=== PATIENT | female | born 1960 | race Hispanic/Latino ===

== ENCOUNTER 2018-05-14 12:51 | Emergency (ER) | payer OTHER ==
--- OUTSIDE RECORDS SUMMARY | 2018-05-14 12:59 | XMS REPORT ---
:1960 [facility] [address] [place] [address] Care Team Providers Name Role Phone DR ANITA GALVEZ Unavailable Unavailable Problems This patient has no known problems. Allergies, Adverse Reactions, Alerts This patient has no known allergies or adverse reactions. Medications This patient has no known medications. Encounters Start End Encounter Admission Attending Care Care Encounter Date/Time Date/Time Type Type Clinicians Facility Department ID 2017-07-13 2017-07-13 Outpatient C ASHKAN GALVEZ [facility] [id number] 07:21:00 11:35:00 ANITA Results Test Description Test Time Test Comments Text Results Atomic Results Result Comments GLUCOMETER GLUCOSE- LAB USE ONLY 2017-07-14 06:47:00 Test Item Value Reference Range Comments GLUCOMETER (test code=GMG) 119 mg/dL 70-100
--- OUTSIDE RECORDS SUMMARY | 2018-05-14 12:59 | XMS REPORT | Clinical Summary ---
:1960 Author Organization [facility] [employer] Address [address] [place] [address] Care Team Providers Name Role Phone Asked, No Pcp Primary Care Provider Unavailable Allergies Active Allergy Reactions Severity Noted Date Comments Codeine 11/02/2017 Current Medications Prescription Sig. Disp. Refills Start Date End Date Status metoprolol tartrate Take 25 mg by Active (LOPRESSOR) 25 mg mouth 2 (two) tablet times a day. lisinopril Take 5 mg by Active (PRINIVIL,ZESTRIL) 5 mouth daily. mg tablet linezolid (ZYVOX) 600 Take 1 tablet 20 tablet 0 11/06/2017 11/16/2017 mg tablet (600 mg total) by mouth 2 (two) times a day for 10 days. Active Problems Problem Noted Date Cellulitis and abscess of right leg 11/02/2017 Encounters Date Type Specialty Care Team Description 11/21/2017 Office Visit General Surgery Oprodrick, Surgery follow-up Braulio Rendon MD (Primary Dx) 11/03/2017 Anesthesia Event General Surgery Aditi Chavez MD 11/03/2017 Procedure Pass General Surgery 11/03/2017 Surgery General Surgery Lyndsey, Incision and Braulio Rendon MD Drainage of Right Thigh Abscess 11/02/2017 - Hospital Encounter General Internal Hoover, Cellulitis and 11/07/2017 Shyam Paez MD abscess of right Saad Barbosa MD leg (Primary Dx) after 05/13/2017 Social History Tobacco Use Types Packs/Day Years Used Date Never Smoker Smokeless Tobacco: Never Used Alcohol Use Drinks/Week oz/Week Comments No Sex Assigned at Date Recorded Not on file Last Filed Vital Signs Vital Sign Reading Time Taken Blood Pressure 137/89 11/21/2017 12:50 PM CDT Pulse 69 11/21/2017 12:50 PM CDT Temperature 36.5 C (97.7 F) 11/07/2017 9:01 AM CDT Respiratory Rate 16 11/07/2017 9:01 AM CDT Oxygen Saturation 94% 11/07/2017 11:34 AM CDT Inhaled Oxygen Concentration - - Weight 81.6 kg (180 lb) 11/21/2017 12:50 PM CDT Height 154.9 cm (5' 1") 11/21/2017 12:50 PM CDT Body Mass Index 34.01 11/21/2017 12:50 PM CDT Plan of Treatment Health Maintenance Due Date Last Done Comments CERVICAL CANCER SCREENING 1983 BREAST CANCER SCREENING 2012 COLON CANCER SCREENING 2012 SHINGRIX VACCINE (#1) 2012 INFLUENZA VACCINE 02/28/2018 Procedures Procedure Name Priority Date/Time Associated Comments Diagnosis ZZESTIMATED GFR Routine 11/07/2017 5:45 Results for this AM CDT procedure are in the results section. COMPREHENSIVE Routine 11/07/2017 5:45 Results for this METABOLIC PANEL AM CDT procedure are in the results section. CBC WITH PLATELET AND Routine 11/07/2017 5:45 Results for this DIFFERENTIAL AM CDT procedure are in the results section. POC GLUCOSE Routine 11/06/2017 11:04 Results for this AM CDT procedure are in the results section. POC GLUCOSE Routine 11/06/2017 8:16 Results for this AM CDT procedure are in the results section. VANCOMYCIN LEVEL, Timed 11/06/2017 5:30 Results for this TROUGH AM CDT procedure are in the results section. ZZESTIMATED GFR Routine 11/06/2017 5:30 Results for this AM CDT procedure are in the results section. MAGNESIUM LEVEL Routine 11/06/2017 5:30 Results for this AM CDT procedure are in the results section. COMPREHENSIVE Routine 11/06/2017 5:30 Results for this METABOLIC PANEL AM CDT procedure are in the results section. HC COMPLETE BLD COUNT Routine 11/06/2017 5:30 Results for this W/AUTO DIFF AM CDT procedure are in the results section. POC GLUCOSE Routine 11/05/2017 9:11 Results for this PM CDT procedure are in the results section. POC GLUCOSE Routine 11/05/2017 5:37 Results for this PM CDT procedure are in the results section. POC GLUCOSE Routine 11/05/2017 11:12 Results for this AM CDT procedure are in the results section. POC GLUCOSE Routine 11/05/2017 7:39 Results for this AM CDT procedure are in the results section. ZZESTIMATED GFR Routine 11/05/2017 5:00 Results for this AM CDT procedure are in the results section. BASIC METABOLIC PANEL Routine 11/05/2017 5:00 Results for this AM CDT procedure are in the results section. HC COMPLETE BLD COUNT Routine 11/05/2017 5:00 Results for this W/AUTO DIFF AM CDT procedure are in the results section. POC GLUCOSE Routine 11/04/2017 3:55 Results for this PM CDT procedure are in the results section. POC GLUCOSE Routine 11/04/2017 11:42 Results for this AM CDT procedure are in the results section. ZZESTIMATED GFR Routine 11/04/2017 7:00 Results for this AM CDT procedure are in the results section. BASIC METABOLIC PANEL Routine 11/04/2017 7:00 Results for this AM CDT procedure are in the results section. MANUAL DIFFERENTIAL Routine 11/04/2017 5:45 Results for this AM CDT procedure are in the results section. VANCOMYCIN LEVEL, Routine 11/04/2017 5:45 Results for this TROUGH AM CDT procedure are in the results section. CBC WITH PLATELET AND Routine 11/04/2017 5:45 Results for this DIFFERENTIAL AM CDT procedure are in the results section. POC GLUCOSE Routine 11/03/2017 4:39 Results for this PM CDT procedure are in the results section. POC GLUCOSE Routine 11/03/2017 3:52 Results for this PM CDT procedure are in the results section. GRAM STAIN Timed 11/03/2017 3:15 Results for this PM CDT procedure are in the results section. AEROBIC CULTURE Timed 11/03/2017 3:15 Results for this PM CDT procedure are in the results section. ANAEROBIC CULTURE Timed 11/03/2017 3:15 Results for this PM CDT procedure are in the results section. MT AN ELECTIVE Routine 11/03/2017 3:04 SUPRAGLOTTIC AIRWAY PM CDT Procedure Note - Efren Waters CRNA - 11/03/2017 3:04 PM CDT Airway Date/Time: 11/03/2017 2:53 PM Performed by: EFREN WATERS Authorized by: ADITI CHAVEZ Location: OR Urgency: Elective Difficult Airway: No Anesthesiologist: ADITI CHAVEZ Resident/ARRT TECHNOLOGIST/AA: EFREN WATERS Performed by: anesthesiologist and resident/ARRT TECHNOLOGIST/AA Preoxygenated with 100% O2: Yes Mask Ventilation: Easy mask Final Airway Type: Supraglottic airway Final LMA: Classic LMA Size: 4 Number of Attempts at Approach: 1 ECG 12-LEAD STAT 11/03/2017 1:01 PM CDT POC GLUCOSE Routine 11/03/2017 11:30 AM CDT POC GLUCOSE Routine 11/03/2017 7:40 AM CDT XR ABDOMEN 1 VW PORTABLE STAT 11/03/2017 6:58 AM CDT POC GLUCOSE Routine 11/03/2017 6:21 AM CDT ZZESTIMATED GFR Routine 11/03/2017 5:00 AM CDT COMPREHENSIVE METABOLIC Routine 11/03/2017 5:00 AM CDT Results for this PANEL procedure are in the results section. HC COMPLETE BLD COUNT W/AUTO Routine 11/03/2017 5:00 AM CDT Results for this DIFF procedure are in the results section. LIPID PANEL Routine 11/03/2017 5:00 AM CDT HEMOGLOBIN A1C Routine 11/03/2017 5:00 AM CDT POC GLUCOSE Routine 11/02/2017 9:34 PM CDT LACTIC ACID LEVEL, SEPSIS - Timed 11/02/2017 9:04 PM CDT Results for this NOW AND REPEAT 2X EVERY 3 procedure are in the HOURS results section. CONSULT TO OSTOMY CARE NURSE Routine 11/02/2017 7:00 PM CDT GRAM STAIN Routine 11/02/2017 7:00 PM CDT AEROBIC CULTURE Routine 11/02/2017 7:00 PM CDT ZZESTIMATED GFR STAT 11/02/2017 5:57 PM CDT BASIC METABOLIC PANEL STAT 11/02/2017 5:57 PM CDT LACTIC ACID LEVEL, SEPSIS - Timed 11/02/2017 5:51 PM CDT Results for this NOW AND REPEAT 2X EVERY 3 procedure are in the HOURS results section. BLOOD CULTURE, AEROBIC & Routine 11/02/2017 2:42 PM CDT Results for this ANAEROBIC procedure are in the results section. PARTIAL THROMBOPLASTIN TIME STAT 11/02/2017 2:35 PM CDT Results for this (PTT) procedure are in the results section. PROTHROMBIN TIME WITH INR STAT 11/02/2017 2:35 PM CDT HC COMPLETE BLD COUNT W/AUTO STAT 11/02/2017 2:35 PM CDT Results for this DIFF procedure are in the results section. LACTIC ACID LEVEL, SEPSIS - STAT 11/02/2017 2:35 PM CDT Results for this NOW AND REPEAT 2X EVERY 3 procedure are in the HOURS results section. BLOOD CULTURE, AEROBIC & Routine 11/02/2017 2:35 PM CDT Results for this ANAEROBIC procedure are in the results section. after 05/13/2017 Results Estimated GFR (11/07/2017 5:45 AM)Only the most recent of6 resultswithin the time period is included. GFR Non Af Amer 87 mL/min/1.73 m2 [facility] DEPARTMENT OF PATHOLOGY AND GENOMIC MEDICINE GFR Af Amer >90 mL/min/1.73 m2 [facility] DEPARTMENT OF Comment: PATHOLOGY AND GENOMIC Chronic kidney disease: <60 mL/min/1.73m2 MEDICINE Kidney failure: <15 mL/min/1.73m2 The estimated GFR is calculated from the IDMS-traceable Modification of Diet in Renal Disease Equation. The accuracy of the calculation is poor when the creatinine is normal. Calculated values >90 mL/min/1.73m2 are not reported. This equation has not been validated in children (<18 years), women, the elderly (>70 years), or ethnic groups other than Caucasians and Americans. Specimen Plasma specimen Performing Organization Address City/State/Zipcode Phone Number [facility] DEPARTMENT OF PATHOLOGY [address] [place] [address] AND [employer] CBC with platelet and differential (11/07/2017 5:45 AM)Only the most recent of6 resultswithin the time period is included. WBC 8.0 4.5 - 11.0 k/uL [facility] DEPARTMENT OF PATHOLOGY AND GENOMIC MEDICINE RBC 4.93 4.20 - 5.50 m/uL [facility] DEPARTMENT OF PATHOLOGY AND GENOMIC MEDICINE HGB 14.1 12.0 - 16.0 g/dL [facility] DEPARTMENT OF PATHOLOGY AND GENOMIC MEDICINE HCT 43.1 37.0 - 47.0 % [facility] DEPARTMENT OF PATHOLOGY AND GENOMIC MEDICINE MCV 87.4 82.0 - 100.0 fL [facility] DEPARTMENT OF PATHOLOGY AND GENOMIC MEDICINE MCH 28.6 27.0 - 34.0 pg [facility] DEPARTMENT OF PATHOLOGY AND GENOMIC MEDICINE MCHC 32.7 31.0 - 37.0 g/dL [facility] DEPARTMENT OF PATHOLOGY AND GENOMIC MEDICINE RDW - SD 44.8 37.0 - 55.0 fL [facility] DEPARTMENT OF PATHOLOGY AND GENOMIC MEDICINE MPV 9.4 6.9 - 11.0 fL [facility] DEPARTMENT OF PATHOLOGY AND GENOMIC MEDICINE Platelet count 285 150 - 400 K/uL [facility] DEPARTMENT OF PATHOLOGY AND GENOMIC MEDICINE Nucleated RBC 0.00 /100 WBC [facility] DEPARTMENT OF PATHOLOGY AND GENOMIC MEDICINE Neutrophils 65.6 39.0 - 69.0 % [facility] DEPARTMENT OF PATHOLOGY AND GENOMIC MEDICINE Lymphocytes 21.3 (L) 25.0 - 45.0 % [facility] DEPARTMENT OF PATHOLOGY AND GENOMIC MEDICINE Monocytes 7.3 0.0 - 10.0 % [facility] DEPARTMENT OF PATHOLOGY AND GENOMIC MEDICINE Eosinophils 4.1 0.0 - 5.0 % [facility] DEPARTMENT OF PATHOLOGY AND GENOMIC MEDICINE Basophils 1.0 0.0 - 1.0 % [facility] DEPARTMENT OF PATHOLOGY AND GENOMIC MEDICINE Immature granulocytes 0.7 0.0 - 1.0 % [facility] DEPARTMENT OF PATHOLOGY AND GENOMIC MEDICINE Specimen Blood Performing Organization Address City/State/Zipcode Phone Number [facility] DEPARTMENT OF PATHOLOGY [address] [place] [address] AND [employer] [facility] Comprehensive metabolic panel (11/07/2017 5:45 AM)Only the most recent of3 resultswithin the time period is included. Sodium 140 135 - 148 mEq/L [facility] DEPARTMENT OF PATHOLOGY AND GENOMIC MEDICINE Potassium 4.1 3.5 - 5.0 mEq/L [facility] DEPARTMENT OF PATHOLOGY AND GENOMIC MEDICINE Chloride 100 98 - 112 mEq/L [facility] DEPARTMENT OF PATHOLOGY AND GENOMIC MEDICINE CO2 29 24 - 31 mEq/L [facility] DEPARTMENT OF PATHOLOGY AND GENOMIC MEDICINE Anion gap 11 7 - 15 mEq/L [facility] DEPARTMENT OF Comment: PATHOLOGY AND GENOMIC Starting from October , anion gap calculation MEDICINE no longer incorporates potassium. Please note the change. BUN 10 6 - 20 mg/dL [facility] DEPARTMENT OF PATHOLOGY AND GENOMIC MEDICINE Creatinine 0.7 0.5 - 0.9 mg/dL [facility] DEPARTMENT OF PATHOLOGY AND GENOMIC MEDICINE Glucose 121 (H) 65 - 99 mg/dL [facility] DEPARTMENT OF PATHOLOGY AND GENOMIC MEDICINE Calcium 9.1 8.3 - 10.2 mg/dL [facility] DEPARTMENT OF PATHOLOGY AND GENOMIC MEDICINE Protein 7.0 6.3 - 8.3 g/dL [facility] DEPARTMENT OF PATHOLOGY AND GENOMIC MEDICINE Albumin 3.7 3.5 - 5.0 g/dL [facility] DEPARTMENT OF PATHOLOGY AND GENOMIC MEDICINE A/G ratio 1.1 0.7 - 3.8 [facility] DEPARTMENT OF PATHOLOGY AND GENOMIC [facility] Alkaline phosphatase 113 (H) 35 - 104 U/L [facility] DEPARTMENT OF PATHOLOGY AND GENOMIC MEDICINE AST 38 (H) 10 - 35 U/L [facility] DEPARTMENT OF PATHOLOGY AND GENOMIC MEDICINE ALT 56 (H) 5 - 50 U/L [facility] DEPARTMENT OF PATHOLOGY AND GENOMIC MEDICINE Total bilirubin 0.3 0.2 - 1.2 mg/dL [facility] DEPARTMENT OF PATHOLOGY AND GENOMIC [facility] Specimen Plasma specimen Performing Organization Address City/[facility] Phone Number [facility] DEPARTMENT OF PATHOLOGY [address] [place] [address]. [place] [address] AND [employer] [facility] POC glucose (11/06/2017 11:04 AM)Only the most recent of14 resultswithin the time period is included. POC glucose 118 (H) 65 - 99 mg/dL [facility] DEPARTMENT OF PATHOLOGY Comment: AND GENOMIC MEDICINE RN Notified Meter ID: [id number] Senior Ui Software Engineer: ray Rivera Performing Organization Address City/[facility]/Zipcode Phone Number [facility] DEPARTMENT OF PATHOLOGY [address] [place] [address] AND [employer] [facility] Magnesium level (11/06/2017 5:30 AM) Magnesium 1.9 1.6 - 2.6 mg/dL [facility] DEPARTMENT OF PATHOLOGY AND GENOMIC MEDICINE Specimen Plasma specimen Performing Organization Address [facility] Phone Number [facility] DEPARTMENT OF PATHOLOGY [address] [place] [address] AND [facility] Vancomycin level, trough (11/06/2017 5:30 AM)Only the most recent of2 resultswithin the time period is included. Vancomycin, trough 12.4 10.0 - 20.0 ug/mL [facility] DEPARTMENT OF Comment: PATHOLOGY AND GENOMIC Therapeutic Ranges: MEDICINE Peak30.0 - 40.0 ug/mL Zthqbz21.0 - 20.0 ug/mL Specimen Blood Performing Organization Address [facility] Phone Number [facility] DEPARTMENT OF PATHOLOGY [address] [place] [address] Basic metabolic panel (11/05/2017 5:00 AM)Only the most recent of3 resultswithin the time period is included. Sodium 140 135 - 148 mEq/L [facility] DEPARTMENT OF PATHOLOGY AND GENOMIC MEDICINE Potassium 4.2 3.5 - 5.0 mEq/L [facility] DEPARTMENT OF PATHOLOGY AND GENOMIC MEDICINE Chloride 102 98 - 112 mEq/L [facility] DEPARTMENT OF PATHOLOGY AND GENOMIC MEDICINE CO2 25 24 - 31 mEq/L [facility] DEPARTMENT OF PATHOLOGY AND GENOMIC MEDICINE Anion gap 13 7 - 15 mEq/L [facility] DEPARTMENT OF Comment: PATHOLOGY AND GENOMIC Starting from October , anion gap calculation MEDICINE no longer incorporates potassium. Please note the change. BUN 8 6 - 20 mg/dL [facility] DEPARTMENT OF PATHOLOGY AND GENOMIC MEDICINE Creatinine 0.7 0.5 - 0.9 mg/dL [facility] DEPARTMENT OF PATHOLOGY AND GENOMIC MEDICINE Glucose 130 (H) 65 - 99 mg/dL [facility] DEPARTMENT OF PATHOLOGY AND GENOMIC MEDICINE Calcium 8.9 8.3 - 10.2 mg/dL [facility] DEPARTMENT OF PATHOLOGY AND GENOMIC MEDICINE Specimen Plasma specimen Performing Organization Address [facility] Phone Number [facility] DEPARTMENT OF PATHOLOGY [address] [place] [address] AND [employer] [facility] Manual differential (11/04/2017 5:45 AM) Manual differential PERFORMED [facility] DEPARTMENT OF PATHOLOGY AND GENOMIC MEDICINE Neutrophils 73.0 (H) 39.0 - 69.0 % [facility] DEPARTMENT OF PATHOLOGY AND GENOMIC MEDICINE Lymphocytes 23.0 (L) 25.0 - 45.0 % [facility] DEPARTMENT OF PATHOLOGY AND GENOMIC MEDICINE Monocytes 1.0 0.0 - 10.0 % [facility] DEPARTMENT OF PATHOLOGY AND GENOMIC MEDICINE Eosinophils 1.0 0.0 - 5.0 % [facility] DEPARTMENT OF PATHOLOGY AND GENOMIC MEDICINE Basophils 2.0 (H) 0.0 - 1.0 % [facility] DEPARTMENT OF PATHOLOGY AND GENOMIC MEDICINE Platelet slide review Kasey adequate [facility] DEPARTMENT OF PATHOLOGY AND GENOMIC MEDICINE Toxic granulation Slight [facility] DEPARTMENT OF PATHOLOGY AND GENOMIC MEDICINE Neutrophils, vacuolated Slight [facility] DEPARTMENT OF PATHOLOGY AND GENOMIC MEDICINE Giant platelets Occasional [facility] DEPARTMENT OF PATHOLOGY AND GENOMIC MEDICINE Performing Organization Address City/State/Zipcode Phone Number [facility] DEPARTMENT OF PATHOLOGY [address] [place] [address] AND GENOMIC MEDICINE Aerobic culture (11/03/2017 3:15 PM)Only the most recent of2 resultswithin the time period is included. Aerobic culture isolate Staphylococcus, coagulase negative [facility] DEPARTMENT OF Recovered in Broth only: PATHOLOGY AND GENOMIC susceptibility to follow MEDICINE (A) Comment: Specimen Information Specimen Source: Tissue Specimen Site: Thigh, right Specimen Tissue - Thigh, right Organism Antibiotic Method Susceptibility Staphylococcus coagulase Ampicillin KENRICK mcg/mL: Resistant negative Staphylococcus coagulase Clindamycin KENRICK <=0.5 mcg/mL: Susceptible negative Staphylococcus coagulase Erythromycin KENRICK >4 mcg/mL: Resistant negative Staphylococcus coagulase Levofloxacin KENRICK <=1 mcg/mL: Susceptible negative Staphylococcus coagulase Linezolid KENRICK 2 mcg/mL: Susceptible negative Staphylococcus coagulase Minocycline KENRICK 2 mcg/mL: Susceptible negative Staphylococcus coagulase Oxacillin KENRICK >1 mcg/mL: Resistant negative Staphylococcus coagulase Penicillin G KENRICK >1 mcg/mL: Resistant negative Staphylococcus coagulase Rifampin KENRICK <=0.5 mcg/mL: Susceptible negative Staphylococcus coagulase Tetracycline KENRICK 2 mcg/mL: Susceptible negative Staphylococcus coagulase Vancomycin KENRICK 1 mcg/mL: Susceptible negative Staphylococcus coagulase Trimethoprim/Sulfamethoxa KENRICK <=0.5/9.5 mcg/mL: negative zole Susceptible Performing Organization Address City/[facility] Phone Number [facility] DEPARTMENT OF PATHOLOGY AND [employer] [address] [employer] MEDICINE Gram stain (11/03/2017 3:15 PM)Only the most recent of2 resultswithin the time period is included. Gram stain isolate Moderate WBC's [facility] DEPARTMENT OF PATHOLOGY Few Gram positive cocci in pairs AND GENOMIC MEDICINE Comment: Specimen Information Specimen Source: Tissue Specimen Site: Thigh, right Specimen Tissue - Thigh, right Performing Organization Address City/State/Zipcode Phone Number [facility] DEPARTMENT OF PATHOLOGY AND [address] [place] [address] [facility] MEDICINE Anaerobic culture (11/03/2017 3:15 PM) Anaerobic culture No anaerobic organisms isolated. [facility] DEPARTMENT OF isolate Comment: PATHOLOGY AND GENOMIC Specimen Information MEDICINE Specimen Source: Tissue Specimen Site: Thigh, right Specimen Tissue - Thigh, right Performing Organization Address City/[facility]/Zipcode Phone Number [facility] DEPARTMENT OF PATHOLOGY AND [address] [place] [address] [facility] ECG 12 lead (11/03/2017 1:01 PM) Ventricular rate 85 H MUSE Atrial rate 85 [facility] MUSE MT interval 130 [facility] MUSE QRSD interval 90 [facility] MUSE QT interval 356 [facility] MUSE QTC interval 423 [facility] MUSE P axis 1 92 [facility] MUSE QRS axis 1 59 [facility] MUSE T wave axis 35 [facility] MUSE EKG impression Normal sinus rhythm-Normal ECG-No previous [facility] MUSE ECGs available- Performing Organization Address [facility] Phone Number [facility] MUSE [address] [place] [address] XR Abdomen 1 Vw Portable (11/03/2017 6:58 AM) Narrative Performed At XR ABDOMEN 1 VW PORTABLE [facility] CLINICAL INDICATION:Vomiting COMPARISON:None. IMPRESSION: The bowel gas pattern is nonspecific. There is no evidence to suggest bowel obstruction. Surgical clips in the right upper quadrant abdomen related to prior cholecystectomy. The osseous structures are intact. No evidence for free intraperitoneal air. [facility]-[id number] Procedure Note Interface, Radiology Results Incoming - 11/03/2017 7:26 AM CDT XR ABDOMEN 1 VW PORTABLE CLINICAL INDICATION: Vomiting COMPARISON: None. IMPRESSION: The bowel gas pattern is nonspecific. There is no evidence to suggest bowel obstruction. Surgical clips in the right upper quadrant abdomen related to prior cholecystectomy. The osseous structures are intact. No evidence for free intraperitoneal air. [facility]-[id number] Performing Organization Address [facility]/Zipcode Phone Number [facility] [address] [place] [address] Hemoglobin A1c (11/03/2017 5:00 AM) Hemoglobin A1C 7.4 (H) 4.0 - 6.0 % [facility] DEPARTMENT OF PATHOLOGY Comment: AND [employer] MEDICINE Less than 6% - Goal of therapy for Type II Diabetes Less than 7%-Goal of therapy for Type I Diabetes Less than 8%-Acceptable control for Type I or Type II Diabetes Greater than 8%-Unacceptable control; action indicated. ([id number]) Specimen Blood Performing Organization Address [facility]/Zipcode Phone Number [facility] DEPARTMENT OF PATHOLOGY [address] [place] [address] AND [employer] Lipid panel (11/03/2017 5:00 AM) Cholesterol 183 0 - 199 mg/dL [facility] DEPARTMENT OF PATHOLOGY AND GENOMIC MEDICINE Triglycerides 185 (H) 0 - 149 mg/dL [facility] DEPARTMENT OF PATHOLOGY AND GENOMIC MEDICINE HDL cholesterol 41 40 - 99,999 [facility] DEPARTMENT OF mg/dL PATHOLOGY AND GENOMIC MEDICINE LDL cholesterol 116 (H) 0 - 99 mg/dL [facility] DEPARTMENT OF PATHOLOGY AND GENOMIC MEDICINE Lipid panel See below [facility] DEPARTMENT OF interpretation Comment: PATHOLOGY AND Total Cholesterol (mg/dL) GENOMIC MEDICINE <200 Desirable 085-577Epwvacwbzd-rgdf >=240High Triglycerides (mg/dL) <150 Normal 765-105Yghlvccebs-wymv 200-499High >=500Very high HDL Cholesterol (mg/dL) <40Low (male) <50Low (female) LDL Cholesterol (mg/dL) <100 Optimal 100-129Near or above optimal 903-409Bpfohwjsbr-taas 160-189High >=190Very high Risk Catergories that modify LDL goals. Risk CatergoriesLDL goal (mg/dL) CHD and CHD risk equivalent<100 (10-year risk >20%) Multiple (2+) risk factors <130 (10-year risk=<20%) 0-1 risk factors <160 (<10-year risk) Defining levels of lipids in metabolic syndrome Triglycerides>=150 mg/dL HDL Cholesterol Men<40 mg/dL Women<50 mg/dL Non-HDL cholesterol is a second target for therapy in persons with high triglycerides (>=200 mg/dL) Specimen Plasma specimen Performing Organization Address [facility]/Zipcode Phone Number [facility] DEPARTMENT OF PATHOLOGY [address] [place] [address] AND [employer] Lactic acid level, SEPSIS - Now and repeat 2x every 3 hours (11/02/2017 9:04 PM )Only the most recent of3 resultswithin the time period is included. Lactic acid 0.9 0.5 - 2.2 mmol/L [facility] DEPARTMENT OF PATHOLOGY AND GENOMIC MEDICINE Specimen Plasma specimen Performing Organization Address City/[facility] Phone Number [facility] DEPARTMENT OF PATHOLOGY [id number] [place] [address]. [place] [address] AND [employer] [facility] Blood culture, aerobic & anaerobic (11/02/2017 2:42 PM)Only the most recent of2 resultswithin the time period is included. Blood culture isolate No growth after 5 days of incubation. [facility] DEPARTMENT OF Comment: PATHOLOGY AND GENOMIC Specimen Information MEDICINE Specimen Source: Blood Specimen Site: Hand, right Specimen Blood - Hand, right Performing Organization Address [facility] Phone Number [facility] DEPARTMENT OF PATHOLOGY AND [address] [place] [id number] [place] [address] Partial thromboplastin time, activated (11/02/2017 2:35 PM) PTT 29.4 23.0 - 36.0 sec [facility] DEPARTMENT OF Comment: PATHOLOGY AND GENOMIC PTT therapeutic range for unfractionated heparin is MEDICINE 61.0-112.0 seconds which corresponds to Anti-Xa 0.3-0.7 U/ml. Specimen Blood Performing Organization Address City/[facility]/Zipcode Phone Number [facility] DEPARTMENT OF PATHOLOGY [id number] [place] [address]. [place] [address] AND [employer] [facility] Prothrombin time with INR (11/02/2017 2:35 PM) Prothrombin time 13.3 12.0 - 15.0 sec [facility] DEPARTMENT OF PATHOLOGY AND GENOMIC MEDICINE INR 1.0 [facility] DEPARTMENT OF Comment: PATHOLOGY AND GENOMIC The International Normalized Ratio (INR) is a therapeutic MEDICINE monitoring tool for patients who are stable on oral anticoagulant therapy. An INR of 2.0-3.0 is suggested for deep vein thrombosis/pulmonary embolism. Specimen Blood Performing Organization Address City/[facility]/Zipcode Phone Number [facility] DEPARTMENT OF PATHOLOGY [address] [place] [address] AND [employer] [facility] after 05/13/2017 Insurance Payer Benefit Plan / Group Subscriber ID Type Phone Address AETNA AETNA HMO,POS,EPO, MC/EC xxxxxxxxxx HMO Home: [facility] [address] [phone] [address] [place] [id number]
[2018-05-14 13:39] LABS: Absolute Lymphocytes (CBC) 1.8 K/uL (0.7-4.9); Absolute Monocytes 0.6 K/uL (0.1-1.3); Absolute Neutrophil 7.4 K/uL (1.8-8.0); Basophils % 0.7 % (0-1.3); Lymphocytes % 18.4 % (15.3-44.8); MCH 29.6 pg (27.0-35.0); MCV 86.1 fL (80-100); MPV 8.8 fL (7.6-11.3); Monocytes % 6.2 % (3.3-12.3); RBC Red Blood Cell Count 5.34 M/uL (3.86-4.86)
[2018-05-14] MEDS ORDERED: ONDANSETRON 4 MG/2 ML VIAL ONE ×2 (13:41→14:24)
[2018-05-14] MEDS ORDERED: FENTANYL CITR 100 MCG/2 ML ONE ×2 (13:41→17:52)
[2018-05-14] MEDS ORDERED: NA CHLORIDE 0.9% 1,000 ML ONE ×2 (13:41→15:54)
[2018-05-14 13:42] LABS: Protime INR 1.22
[2018-05-14] MEDS ORDERED: FAMOTIDINE 20 MG/2 ML VIAL IV ONE (13:42)
[2018-05-14] MEDS ORDERED: NA CHLORIDE 0.9% 2,000 ML ONE (14:02)
[2018-05-14 14:07] LABS: ALT/SGPT 26 U/L (12-78); AST/SGOT 20 U/L (15-37); Albumin 4.6 g/dL (3.4-5.0); Alkaline Phosphatase 150 U/L (45-117); BUN Blood Urea Nitrogen 16 mg/dL (7-18); Bicarbonate 23 mmol/L (21-32); Bilirubin Direct 0.3 mg/dL (0-0.2); Bilirubin Total 0.8 mg/dL (0.2-1.0); Glucose Level 118 mg/dL (74-106); Lipase 149 U/L (73-393); Magnesium 2.2 mg/dL (1.8-2.4); NT PRO-BNP 21 pg/mL (<125); Potassium 3.9 mmol/L (3.5-5.1); Sodium Level 138 mmol/L (136-145); Troponin (Emerg Dept Use Only) < 0.02 ng/mL (0.0-0.045)
--- NOTE | 2018-05-14 14:21 | ER ---
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 c/o nausea. Transition of care: patient was not received from another setting of care. Onset of symptoms was May 14, 2018. Care prior to arrival: None. 13:01 Method Of Arrival: Wheelchair sv 13:01 Acuity: JEAN CLAUDE 3 sv 18:07 Risk Assessment: Do you want to hurt yourself or someone else? Patient reports no aj1 desire to harm self or others. Initial Sepsis Screen: Does the patient meet any 2 criteria? No. Patient's initial sepsis screen is negative. Does the patient have a suspected source of infection? No. Patient's initial sepsis screen is negative. Historical: - Allergies: 13:02 Codeine; sv - PMHx: 14:06 left ventricular hypertrophy; aj1 - PSHx: 13:02 Cholecystectomy; bowel; sv - Immunization history:: Adult Immunizations up to date. - Social history:: Smoking status: Patient/guardian denies using tobacco. - Ebola Screening: : Patient denies travel to an Ebola-affected area in the 21 days before illness onset. Screenin:12 Abuse screen: Denies threats or abuse. Denies injuries from another. Nutritional aj1 screening: No deficits noted. Tuberculosis screening: No symptoms or risk factors identified. 18:08 Fall Risk IV access (20 points). Total So Fall Scale indicates No Risk (0-24 pts). aj1 Assessment: 13:12 General: Appears in no apparent distress. uncomfortable, Behavior is agitated, aj1 restless. Pain: Complains of pain in right upper quadrant Pain currently is 10 out of 10 on a pain scale. Quality of pain is described as crampy, Pain began 1 hour ago. Is continuous. Neuro: Level of Consciousness is awake, alert, obeys commands, Speech is normal. Cardiovascular: Patient's skin is warm and dry. Respiratory: Airway is patent Respiratory effort is even, unlabored, Respiratory pattern is regular, symmetrical. GI: Abdomen is round Abd is soft X 4 quads Abdomen is tender to palpation X 4 quads. Reports bloating, nausea, vomiting. : No signs and/or symptoms were reported regarding the genitourinary system. EENT: No signs and/or symptoms were reported regarding the EENT system. Derm: No signs and/or symptoms reported regarding the dermatologic system. Skin is pink, warm \T\ dry. normal. Musculoskeletal: No signs and/or symptoms reported regarding the musculoskeletal system. Circulation, motion, and sensation intact. 14:05 Reassessment: Patient appears in no apparent distress at this time. No changes from aj1 previously documented assessment. Patient and/or family updated on plan of care and expected duration. Pain level reassessed. Patient is alert, oriented x 3, equal unlabored respirations, skin warm/dry/pink. Patient states that she is still having some pain, but she does not want any more pain medication at this time. 15:05 Reassessment: Patient and/or family updated on plan of care and expected duration. Pain aj1 level reassessed. General: Appears in no apparent distress. uncomfortable, Behavior is cooperative. Neuro: Level of Consciousness is awake, alert, obeys commands. Cardiovascular: Patient's skin is warm and dry. Respiratory: Airway is patent Respiratory effort is even, unlabored, Respiratory pattern is regular, symmetrical. GI: Abdomen is round distended, Bowel sounds present X 4 quads. Abd is soft X 4 quads Abdomen is tender to palpation X 4 quads. Reports bloating, nausea, vomiting. Derm: Skin is pink, warm \T\ dry. normal. Musculoskeletal: Circulation, motion, and sensation intact. 16:05 Reassessment: Patient appears in no apparent distress at this time. No changes from aj1 previously documented assessment. Patient and/or family updated on plan of care and expected duration. Pain level reassessed. Patient is alert, oriented x 3, equal unlabored respirations, skin warm/dry/pink. 17:05 Reassessment: Patient and/or family updated on plan of care and expected duration. Pain aj1 level reassessed. General: Appears in no apparent distress. comfortable, Behavior is calm, cooperative. Neuro: Level of Consciousness is awake, alert, obeys commands, Speech is normal. Cardiovascular: Patient's skin is warm and dry. Respiratory: Airway is patent Respiratory effort is even, unlabored, Respiratory pattern is regular, symmetrical. GI: Abdomen is round distended. Derm: Skin is pink, warm \T\ dry. normal. Musculoskeletal: Circulation, motion, and sensation intact. 18:04 Reassessment: Patient appears in no apparent distress at this time. No changes from aj1 previously documented assessment. Patient and/or family updated on plan of care and expected duration. Pain level reassessed. Patient is alert, oriented x 3, equal unlabored respirations, skin warm/dry/pink. Vital Signs: 13:06 Resp 28; Temp 97.8; Pain 10/10; sv 14:04 BP 131 / 79; Pulse 70; Resp 20; Pulse Ox 95% on R/A; aj1 15:05 BP 155 / 86; Pulse 72; Resp 18; Pulse Ox 100% on R/A; aj1 16:05 BP 146 / 79; Pulse 78; Resp 20; Pulse Ox 95% on R/A; aj1 17:15 BP 140 / 85; Pulse 79; Resp 18; Pulse Ox 96% on R/A; aj1 18:04 BP 142 / 75; Pulse 80; Resp 20; Pulse Ox 96% on R/A; aj1 ED Course: 12:53 Patient arrived in ED. as 13:01 Triage completed. sv 13:02 Arm band placed on left wrist. sv 13:04 Daphne Craft, RN is Primary Nurse. aj1 13:05 Wiley Melara MD is Attending Physician. savanah 13:12 Patient has correct armband on for positive identification. Bed in low position. Call aj1 light in reach. Side rails up X 1. 13:12 No provider procedures requiring assistance completed. aj1 13:45 X-ray completed. Portable x-ray completed in exam room. Patient tolerated procedure ka well. 13:46 XRAY Chest (1 view) In Process Unspecified. EDMS 14:01 EKG done, by residential air sealing technician. reviewed by Wiley Melara MD. tc 14:20 Kristen Rock MD is Hospitalizing Provider. savanah 14:43 Note: nurse called 243 pt has not started drinking oral contrast to nauseaed pt states vr she would start soon. . 14:57 Warm blanket given. jp3 14:57 Initial lab(s) drawn, by me, sent to lab. jp3 14:57 Lactate Sent. jp3 15:21 Lab(s) recollected, by me, sent to lab. jp3 18:02 Report given to ANGELA Shaver on [facility]. aj1 18:35 Patient transferred, IV remains in place. aj1 Administered Medications: 13:40 Drug: Zofran 4 mg Route: IVP; Site: right antecubital; aj1 14:00 Follow up: Response: No adverse reaction aj1 13:40 Drug: Pepcid 20 mg Route: IVP; Site: right antecubital; aj1 14:40 Follow up: Response: No adverse reaction aj1 13:40 Drug: fentaNYL (PF) 25 mcg Route: IVP; Site: right antecubital; aj1 14:40 Follow up: Response: No adverse reaction aj1 13:41 Drug: NS 0.9% 1000 ml Route: IV; Rate: 1 bolus; Site: right antecubital; aj1 16:05 Follow up: IV Status: Completed infusion; IV Intake: 1000ml aj1 14:16 Drug: fentaNYL (PF) 25 mcg Route: IVP; Site: right antecubital; aj1 15:15 Follow up: Response: No adverse reaction aj1 14:26 Drug: Zofran 4 mg Route: IVP; Site: right antecubital; aj1 15:30 Follow up: Response: No adverse reaction aj1 14:26 Drug: Cipro 400 mg Volume: 200 ml; Route: IVPB; Infused Over: 60 mins; Site: right aj1 antecubital; 15:30 Follow up: IV Status: Completed infusion; IV Intake: 100ml aj1 14:26 Drug: Flagyl 500 mg Volume: 100 ml; Route: IVPB; Rate: 200 ml/hr; Infused Over: 30 aj1 mins; Site: right antecubital; 15:00 Follow up: IV Status: Completed infusion; IV Intake: 100ml aj1 15:22 Drug: fentaNYL (PF) 50 mcg Route: IVP; Site: right antecubital; aj1 16:20 Follow up: Response: No adverse reaction aj1 16:05 Drug: NS 0.9% 1000 ml Route: IV; Rate: 125 ml/hr; Site: right antecubital; aj1 18:36 Follow up: IV Status: Infusion continued upon transfer; IV Intake: 600ml aj1 16:15 Drug: Phenergan 12.5 mg Route: IVP; Site: right antecubital; aj1 17:15 Follow up: Response: No adverse reaction aj1 17:47 Drug: fentaNYL (PF) 50 mcg Route: IVP; Site: right antecubital; aj1 18:40 Follow up: Response: No adverse reaction aj1 Intake: 15:00 IV: 100ml; Total: 100ml. aj1 15:30 IV: 100ml; Total: 200ml. aj1 16:05 IV: 1000ml; Total: 1200ml. aj1 18:36 IV: 600ml; Total: 1800ml. aj1 Outcome: 14:21 Decision to Hospitalize by Provider. savanah 16:10 ER care complete, transfer ordered by . [facility] 18:35 Transferred by ground EMS to [facility]. aj1 18:35 Condition: stable 18:35 Discharge instructions given to patient, Instructed on the need for transfer, Demonstrated understanding of instructions. 18:41 Patient left the ED. aj1 Signatures: Dispatcher [employer] EDDaphne Booth RN RN aj1 Martha Junior, RN Wiley Trinidad MD MD cha Martinez, Sosa Gonzalez Tiffany, emergency services dispatcher EKG Ttc Sydni Coleman Jacob jp3 Corrections: (The following items were deleted from the chart) 17:23 13:12 Derm: No signs and/or symptoms reported regarding the dermatologic system. Skin aj1 is pink, warm \T\ dry. black, aj1
--- NOTE | 2018-05-14 14:21 | EDPHYS ---
Physician Documentation [facility] Name: Guerrero Kapadia Age: 58 yrs Sex: Female : 1960 Arrival Date: 05/14/2018 Time: 12:53 Bed 25 Private MD: ED Physician Wiley Melara HPI: 05/14 14:17 This 58 yrs old Female presents to ER via Wheelchair with complaints of savanah Abdominal Pain, Vomiting. 14:17 The patient presents to the emergency department with nausea, vomiting, abdominal pain, savanah of the right upper quadrant, left upper quadrant, right lower quadrant and left lower quadrant. Onset: The symptoms/episode began/occurred 2 day(s) ago. Possible causes: unknown. The symptoms are aggravated by movement, pressure, The symptoms are alleviated by remaining still. Associated signs and symptoms: The patient has no apparent associated signs or symptoms. Severity of symptoms: At their worst the symptoms were moderate severe in the emergency department the symptoms have resolved. The patient has not experienced similar symptoms in the past. Historical: - Allergies: 13:02 Codeine; sv - PMHx: 14:06 left ventricular hypertrophy; aj1 - PSHx: 13:02 Cholecystectomy; bowel; sv - Immunization history:: Adult Immunizations up to date. - Social history:: Smoking status: Patient/guardian denies using tobacco. - Ebola Screening: : Patient denies travel to an Ebola-affected area in the 21 days before illness onset. ROS: 14:18 Constitutional: Negative for fever, chills, and weight loss, Eyes: Negative for injury, savanah pain, redness, and discharge, ENT: Negative for injury, pain, and discharge, Neck: Negative for injury, pain, and swelling, Cardiovascular: Negative for chest pain, palpitations, and edema, Respiratory: Negative for shortness of breath, cough, wheezing, and pleuritic chest pain, Back: Negative for injury and pain, : Negative for injury, bleeding, discharge, and swelling, MS/Extremity: Negative for injury and deformity, Skin: Negative for injury, rash, and discoloration, Neuro: Negative for headache, weakness, numbness, tingling, and seizure, Psych: Negative for depression, anxiety, suicide ideation, homicidal ideation, and hallucinations, Allergy/Immunology: Negative for hives, rash, and allergies, Endocrine: Negative for neck swelling, polydipsia, polyuria, polyphagia, and marked weight changes, Hematologic/Lymphatic: Negative for swollen nodes, abnormal bleeding, and unusual bruising. 14:18 Abdomen/GI: Positive for abdominal pain, nausea and vomiting, abdominal distension, of the right upper quadrant, left upper quadrant, right lower quadrant and left lower quadrant. Exam: 14:18 Constitutional: This is a well developed, well nourished patient who is awake, alert, savanah and in no acute distress. Head/Face: Normocephalic, atraumatic. Eyes: Pupils equal round and reactive to light, extra-ocular motions intact. Lids and lashes normal. Conjunctiva and sclera are non-icteric and not injected. Cornea within normal limits. Periorbital areas with no swelling, redness, or edema. ENT: Nares patent. No nasal discharge, no septal abnormalities noted. Tympanic membranes are normal and external auditory canals are clear. Oropharynx with no redness, swelling, or masses, exudates, or evidence of obstruction, uvula midline. Mucous membranes moist. Neck: Trachea midline, no thyromegaly or masses palpated, and no cervical lymphadenopathy. Supple, full range of motion without nuchal rigidity, or vertebral point tenderness. No Meningismus. Chest/axilla: Normal chest wall appearance and motion. Nontender with no deformity. No lesions are appreciated. Cardiovascular: Regular rate and rhythm with a normal S1 and S2. No gallops, murmurs, or rubs. Normal PMI, no JVD. No pulse deficits. Respiratory: Lungs have equal breath sounds bilaterally, clear to auscultation and percussion. No rales, rhonchi or wheezes noted. No increased work of breathing, no retractions or nasal flaring. Back: No spinal tenderness. No costovertebral tenderness. Full range of motion. Female : Normal external genitalia. Skin: Warm, dry with normal turgor. Normal color with no rashes, no lesions, and no evidence of cellulitis. MS/ Extremity: Pulses equal, no cyanosis. Neurovascular intact. Full, normal range of motion. Neuro: Awake and alert, GCS 15, oriented to person, place, time, and situation. Cranial nerves II-XII grossly intact. Motor strength 5/5 in all extremities. Sensory grossly intact. Cerebellar exam normal. Normal gait. Psych: Awake, alert, with orientation to person, place and time. Behavior, mood, and affect are within normal limits. 14:18 Abdomen/GI: Inspection: distension, Bowel sounds: high pitched, Palpation: moderate abdominal tenderness, in the right upper quadrant, left upper quadrant, right lower quadrant and left lower quadrant, voluntary guarding, is elicited in all quadrants, is elicited in the suprapubic area, right upper quadrant, left upper quadrant, right lower quadrant and left lower quadrant. Vital Signs: 13:06 Resp 28; Temp 97.8; Pain 10/10; sv 14:04 BP 131 / 79; Pulse 70; Resp 20; Pulse Ox 95% on R/A; aj1 15:05 BP 155 / 86; Pulse 72; Resp 18; Pulse Ox 100% on R/A; aj1 16:05 BP 146 / 79; Pulse 78; Resp 20; Pulse Ox 95% on R/A; aj1 17:15 BP 140 / 85; Pulse 79; Resp 18; Pulse Ox 96% on R/A; aj1 18:04 BP 142 / 75; Pulse 80; Resp 20; Pulse Ox 96% on R/A; aj1 MDM: 13:05 Patient medically screened. [facility] 14:19 Data reviewed: vital signs, nurses notes, lab test result(s), EKG, radiologic studies. [facility] 05/14 13:10 Order name: Basic Metabolic Panel; Complete Time: 14:27 [facility] 05/14 13:10 Order name: CBC with Diff; Complete Time: 14:27 [facility] 05/14 13:10 Order name: LFT's; Complete Time: 14:27 [facility] 05/14 13:10 Order name: Magnesium; Complete Time: 14:27 [facility] 05/14 13:10 Order name: NT PRO-BNP; Complete Time: 14:27 [facility] 05/14 13:10 Order name: PT-INR; Complete Time: 14:27 [facility] 05/14 13:10 Order name: Troponin (emerg Dept Use Only); Complete Time: 14:27 [facility] 05/14 13:10 Order name: XRAY Chest (1 view); Complete Time: 16:37 [facility] 05/14 13:10 Order name: Lipase; Complete Time: 14:27 [facility] 05/14 13:10 Order name: Urine Culture [facility] 05/14 13:10 Order name: CT Abd/Pelvis - W/Contrast [facility] 05/14 14:06 Order name: Urine Dipstick--Ancillary (enter results); Complete Time: 15:50 hb 05/14 14:25 Order name: Lactate; Complete Time: 15:50 bd 05/14 15:49 Order name: CT; Complete Time: 15:50 EDMS 05/14 13:10 Order name: EKG; Complete Time: 13:20 savanah 05/14 13:10 Order name: Cardiac monitoring; Complete Time: 13:41 savanah 05/14 14:25 Order name: CONS Physician Consult EDIA 05/14 14:26 Order name: CONS Physician Consult EDIA 05/14 13:10 Order name: EKG - Nurse/Tech; Complete Time: 13:54 savanah 05/14 13:10 Order name: IV Saline Lock; Complete Time: 13:41 savanah 05/14 13:10 Order name: Labs collected and sent; Complete Time: 13:41 [facility] 05/14 13:10 Order name: O2 Per Protocol; Complete Time: 13:41 [facility] 05/14 13:10 Order name: O2 Sat Monitoring; Complete Time: 13:41 [facility] 05/14 13:10 Order name: Urine Dipstick-Ancillary (obtain specimen); Complete Time: 14:05 savanah Administered Medications: 13:40 Drug: Zofran 4 mg Route: IVP; Site: right antecubital; aj1 14:00 Follow up: Response: No adverse reaction aj1 13:40 Drug: Pepcid 20 mg Route: IVP; Site: right antecubital; aj1 14:40 Follow up: Response: No adverse reaction aj1 13:40 Drug: fentaNYL (PF) 25 mcg Route: IVP; Site: right antecubital; aj1 14:40 Follow up: Response: No adverse reaction aj1 13:41 Drug: NS 0.9% 1000 ml Route: IV; Rate: 1 bolus; Site: right antecubital; aj1 16:05 Follow up: IV Status: Completed infusion; IV Intake: 1000ml aj1 14:16 Drug: fentaNYL (PF) 25 mcg Route: IVP; Site: right antecubital; aj1 15:15 Follow up: Response: No adverse reaction aj1 14:26 Drug: Zofran 4 mg Route: IVP; Site: right antecubital; aj1 15:30 Follow up: Response: No adverse reaction aj1 14:26 Drug: Cipro 400 mg Volume: 200 ml; Route: IVPB; Infused Over: 60 mins; Site: right aj1 antecubital; 15:30 Follow up: IV Status: Completed infusion; IV Intake: 100ml aj1 14:26 Drug: Flagyl 500 mg Volume: 100 ml; Route: IVPB; Rate: 200 ml/hr; Infused Over: 30 aj1 mins; Site: right antecubital; 15:00 Follow up: IV Status: Completed infusion; IV Intake: 100ml aj1 15:22 Drug: fentaNYL (PF) 50 mcg Route: IVP; Site: right antecubital; aj1 16:20 Follow up: Response: No adverse reaction aj1 16:05 Drug: NS 0.9% 1000 ml Route: IV; Rate: 125 ml/hr; Site: right antecubital; aj1 18:36 Follow up: IV Status: Infusion continued upon transfer; IV Intake: 600ml aj1 16:15 Drug: Phenergan 12.5 mg Route: IVP; Site: right antecubital; aj1 17:15 Follow up: Response: No adverse reaction aj1 17:47 Drug: fentaNYL (PF) 50 mcg Route: IVP; Site: right antecubital; aj1 18:40 Follow up: Response: No adverse reaction aj1 Disposition: 05/14/18 16:[address] [facility]. 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 - Reason for transfer: Higher level of care. - Accepting physician is to [facility]. - Condition is Fair. - Problem is new. - Symptoms have improved. Signatures: Dispatcher [employer] EDDaphne Booth RN RN aj1 Martha Junior RN RN sv Anderson, Corey, MD MD cha Corrections: (The following items were deleted from the chart) 15:53 14:21 Hospitalization Ordered by Kristen Rock MD for Inpatient Admission. Preliminary savanah diagnosis is Abdominal tenderness; Vomiting; Other intestinal obstruction. Bed requested for Telemetry/MedSurg (Inpatient). Status is Inpatient Admission. Condition is Fair. Problem is new. Symptoms have improved. UTI on Admission? No. savanah 16:10 16:10 05/14/2018 16:[address] [facility]. 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 Reason for transfer: Higher level of care. Accepting physician is to [facility]. Condition is Fair. Problem is new. Symptoms have improved. savanah 18:41 16:10 05/14/2018 16:[address] [facility]. 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 Reason for transfer: Higher level of care. Accepting physician is to [facility]. Condition is Fair. Problem is new. Symptoms have improved. savanah
[2018-05-14] MEDS ORDERED: CIPROFLOXACIN 400mg IV 400 MG/200 ML BAG IV ONE (14:25)
[2018-05-14] MEDS ORDERED: METRONIDAZOLE 500mg IVPB 500 MG/100 ML BAG IV ONE (14:25)
--- NOTE | 2018-05-14 15:03 | RAD REPORT ---
EXAM DESCRIPTION: RAD - Chest Single View - 05/14/2018 1:45 pm CLINICAL HISTORY: ABDOMINAL DISTENTION Chest pain. COMPARISON: No comparisons FINDINGS: Portable technique limits examination quality. The lungs are grossly clear. The heart is normal in size. No displaced fractures. IMPRESSION: No acute intrathoracic process suspected.
[2018-05-14 15:18] LABS: Urine Blood NEGATIVE (NEG); Urine Glucose NEGATIVE (NEG); Urine Protein NEGATIVE (NEG); Urine Specific Gravity >1.030 (1.005-1.030); Urine pH 5.5 (5.0-7.0)
--- NOTE | 2018-05-14 15:45 | EKG ---
Test Date: 2018-05-14 Test Time: 13:52:52 Generator Operator Straight Bevel Gear: AGT MEASUREMENT RESULTS: Intervals: Rate: 63 WY: 136 QRSD: 88 QT: 418 QTc: 427 [place]: P: 52 WY: 136 QRS: 4 T: 37 INTERPRETIVE STATEMENTS: Normal sinus rhythm Normal ECG No previous ECG available for comparison Electronically Signed On 05-14-18 15:44:31 CDT by Brady Garcia
--- NOTE | 2018-05-14 15:48 | RAD REPORT ---
EXAM DESCRIPTION: CTAbdomen Pelvis W Contrast - 05/14/2018 3:37 pm CLINICAL HISTORY: Abdominal pain. ABD PAIN COMPARISON: No comparisons TECHNIQUE: Biphasic CT imaging of the abdomen and pelvis was performed with 100 ml non-ionic IV cont rast. All CT scans are performed using dose optimization technique as appropriate and may include automated exposure control or mA/KV adjustment according to patient size. FINDINGS: The lung bases are clear. Small amount of fluid is seen along the right hepatic edge. Small subcapsular oblong hypoechoic lesio n is present posterior right lobe liver measuring 26 x 10 mm. No intrahepatic biliary dilatation is s een. The gallbladder surgically absent. The spleen, pancreas, adrenal glands and kidneys are within n ormal limits. Small cyst is present in right renal cortex measuring 18 mm. Large amount of soft tissue implants are seen in the omentum compatible with omental carcinomatosis. Mild ascites is present. No free air. No bowel obstruction. There is a very irregular appearance to t he gynecologic structures in the pelvis. No lytic or blastic bone lesion. 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 This is compatible with advanced malignant process , favored to originate from the gynecologic structures. A definitive primary mass, however, is not we ll discerned. Mild free fluid in the abdomen and pelvis.
[2018-05-14] MEDS ORDERED: PROMETHAZINE 25 MG/ML VIAL ONE (16:13)
== END 2018-05-14 18:41 | disposition short-term general hospital (02) ==
LOC: ER 12:51 → UNDOADMIN 14:22 → ERHOLD 14:22
DX: R18.8 Other ascites (principal); C80.0 Disseminated malignant neoplasm, unspecified; Z88.5 Allergy status to narcotic agent
CPT/HCPCS: 36415; 71045; 74177; 80048; 80076; 81003; 83605; 83690; 83735; 83880; 84484; 85025; 85610; 86304; 87086; 87088; 93005; 96361; 96365; 96368; 96375; 99285; J0744; J2405; J2550; J3010; J7030; Q9967

== ENCOUNTER 2018-12-29 02:32 | Inpatient (IN) | payer BC, OTHER ==
--- OUTSIDE RECORDS SUMMARY | 2018-12-29 02:35 | XMS REPORT | Clinical Summary ---
:1960 Author Organization [facility] Address [address] [place] [address] Care Team Providers Name Role Phone Asked, No Pcp Primary Care Provider Unavailable Allergies Active Allergy Reactions Severity Noted Date Comments Codeine 11/02/2017 Medications Medication Sig Dispensed Refills Start Date End Date Status metoprolol tartrate Take 25 mg by 0 Active (LOPRESSOR) 25 mg mouth 2 (two) tablet times a day. lisinopril Take 5 mg by 0 Active (PRINIVIL,ZESTRIL) 5 mg mouth daily. tablet Active Problems Problem Noted Date Cellulitis and abscess of right leg 11/02/2017 Social History Tobacco Use Types Packs/Day Years Used Date Never Smoker Smokeless Tobacco: Never Used Alcohol Use Drinks/Week oz/Week Comments No Sex Assigned at Date Recorded Not on file Job Start Date Occupation Industry Not on file Not on file Not on file Travel History Travel Start Travel End No recent travel history available. Last Filed Vital Signs Not on file Plan of Treatment Health Maintenance Due Date Last Done Comments BREAST CANCER SCREENING 2012 COLON CANCER SCREENING 2012 SHINGLES VACCINES (#1) 2012 INFLUENZA VACCINE 02/28/2019 Results Not on fileafter 12/28/2017 Advance Directives Patient has advance care planning documents on file. For more information, please contact:[id number] [place] [address]
--- OUTSIDE RECORDS SUMMARY | 2018-12-29 02:36 | XMS REPORT ---
:1960 Author Organization [facility] Address [address] [place] [address] Care Team Providers Name Role Phone JAEL MILLER Unavailable Unavailable DR ANITA GALVEZ Unavailable Unavailable Problems This patient has no known problems. Allergies, Adverse Reactions, Alerts This patient has no known allergies or adverse reactions. Medications This patient has no known medications. Encounters Start End Encounter Admission Attending Care Care Encounter Date/Time Date/Time Type Type Clinicians Facility Department ID 2017-07-13 2017-07-13 Outpatient [facility] [id number] 07:21:00 11:35:00 ANITA Results Test Description Test Time Test Comments Text Results Atomic Results Result Comments TISSUE EXAM 2018-05-18 12:46:00 Surgical Pathology Report Case: [id number] Authorizing Provider: Julito Valdez MD Collected: 05/16/2018 1400 Ordering Location: [address] Received: 05/16/2018 1357 SERVICE Pathologist: Rosanna Abrams MD Specimen: Omentum OMENTUM, BIOPSY: - SEROUS ADENOCARCINOMA, LOW GRADE (SEE COMMENT) Signing Pathologist Direct Phone Line: [phone] signed by Rosanna Abrams MD on 05/18/2018 at 12:46 PMSections show clusters of tumor cells in fibroadipose tissue with papillary and glandular arrangement. Focal calcification is seen. By immunohistochemistry, the tumor cells are positive for WT1, PAX8, ER, CK7, while negative for CK20, CDX2, p40 and synaptophysin. P53 and P16 shows variable staining. 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 Clinical/radiological correlation is recommended. Intradepartmental consultation: Dr. Hero Leon has reviewed this case and concurs with the diagnosis.[id number], [id number], [id number] x 9Not givenOmentum biopsyThe specimen is received in a formalin-filled container and labeled with the patient's information and labeled "omentum biopsy" and consists of two suarez off white core biopsies ranging in length from 1.1 to 1.5 cm, submitted entirely A1. CG/pl Performed.The following special studies were performed on this case and the interpretation is incorporated in the diagnostic report above:Please see the immunohistochemistry results in the COMMENT section. The immunohistochemistry test was developed and its performance characteristics determined by [facility], Pathology Laboratory. It has not been cleared or approved by the U.S. Food and Drug Administration. The FDA has determined that such clearance or approval is not necessary. The test is used for clinical purposes. It should not be regarded as investigational or for research. This laboratory is certified under the Clinical Laboratory Improvement Amendments of 1988 (CLIA-88) as qualified to perform high complexity clinical laboratory testing. PHOSPHORUS 2018-05-17 06:08:00 Test Item Value Reference Range Comments PHOSPHORUS (BEAKER) (test mpkx=731) 4.0 mg/dL 2.3-4.7 [id number] 06:08:00 Test Item Value Reference Range Comments MAGNESIUM (BEAKER) (test gmcu=657) 1.8 mg/dL 1.6-2.6 BASIC METABOLIC [id number] 06:08:00 Test Item Value Reference Range Comments SODIUM (BEAKER) (test 140 meq/L 136-145 dwbo=278) POTASSIUM (BEAKER) (test 3.9 meq/L 3.5-5.1 wdxx=540) CHLORIDE (BEAKER) (test 104 meq/L 98-107 akho=388) CO2 (BEAKER) (test 26 meq/L 22-29 jwsu=204) BLOOD UREA NITROGEN 6 mg/dL 7-21 (BEAKER) (test lonu=457) CREATININE (BEAKER) (test 0.73 mg/dL 0.57-1.25 ayrn=645) GLUCOSE RANDOM (BEAKER) 98 mg/dL 70-105 (test wspp=266) CALCIUM (BEAKER) (test 9.4 mg/dL 8.4-10.2 jxrk=608) EGFR (BEAKER) (test 82 mL/min/1.73 sq m ESTIMATED GFR IS NOT mrhb=9627) ACCURATE CREATININE CLEARANCE IN PREDICTING GLOMERULAR FILTRATION RATE. ESTIMATED GFR IS NOT APPLICABLE FOR DIALYSIS PATIENTS. HEPATIC FUNCTION [id number] 06:08:00 Test Item Value Reference Range Comments TOTAL PROTEIN (BEAKER) (test vbrx=462) 6.9 gm/dL 6.0-8.3 ALBUMIN (BEAKER) (test gnbb=0865) 4.0 g/dL 3.5-5.0 BILIRUBIN TOTAL (BEAKER) (test fbea=421) 0.8 mg/dL 0.2-1.2 BILIRUBIN DIRECT (BEAKER) (test bkbd=839) 0.3 mg/dL 0.1-0.5 ALKALINE PHOSPHATASE (BEAKER) (test enzs=728) 119 U/L 40-150 AST (SGOT) (BEAKER) (test ixgi=653) 15 U/L 5-34 ALT (SGPT) (BEAKER) (test rlzo=089) 11 U/L 6-55 CBC W/PLT COUNT & AUTO [id number] 05:10:00 Test Item Value Reference Range Comments WHITE BLOOD CELL COUNT (BEAKER) (test lyke=832) 6.7 K/ L 3.5-10.5 RED BLOOD CELL COUNT (BEAKER) (test wprd=123) 4.62 M/ L 3.93-5.22 HEMOGLOBIN (BEAKER) (test pvxs=662) 13.1 GM/DL 11.2-15.7 HEMATOCRIT (BEAKER) (test lzoy=742) 40.1 % 34.1-44.9 MEAN CORPUSCULAR VOLUME (BEAKER) (test zmcl=334) 86.8 fL 79.4-94.8 MEAN CORPUSCULAR HEMOGLOBIN (BEAKER) (test 28.4 pg 25.6-32.2 dcgr=109) MEAN CORPUSCULAR HEMOGLOBIN CONC (BEAKER) (test 32.7 GM/DL 32.2-35.5 ckvl=362) RED CELL DISTRIBUTION WIDTH (BEAKER) (test 13.0 % 11.7-14.4 ytpd=093) PLATELET COUNT (BEAKER) (test zyfz=608) 268 K/CU MM 150-450 MEAN PLATELET VOLUME (BEAKER) (test surb=590) 10.3 fL 9.4-12.3 NUCLEATED RED BLOOD CELLS (BEAKER) (test 0 /100 WBC 0-0 wqtn=922) NEUTROPHILS RELATIVE PERCENT (BEAKER) (test 63 % aaeg=620) LYMPHOCYTES RELATIVE PERCENT (BEAKER) (test 23 % fsnk=231) MONOCYTES RELATIVE PERCENT (BEAKER) (test 9 % vgwd=461) EOSINOPHILS RELATIVE PERCENT (BEAKER) (test 3 % ytoj=074) BASOPHILS RELATIVE PERCENT (BEAKER) (test 1 % wcjc=358) NEUTROPHILS ABSOLUTE COUNT (BEAKER) (test 4.22 K/ L 1.56-6.13 yacb=851) LYMPHOCYTES ABSOLUTE COUNT (BEAKER) (test 1.56 K/ L 1.18-3.74 lqbw=229) MONOCYTES ABSOLUTE COUNT (BEAKER) (test 0.61 K/ L 0.24-0.36 ovqj=959) EOSINOPHILS ABSOLUTE COUNT (BEAKER) (test 0.23 K/ L 0.04-0.36 aozt=334) BASOPHILS ABSOLUTE COUNT (BEAKER) (test 0.07 K/ L 0.01-0.08 steu=931) IMMATURE GRANULOCYTES-RELATIVE PERCENT (BEAKER) 0 % 0-1 (test pcsk=0324) CT, BIOPSY, [id number] 17:19:00Reason for exam:->evaluate for biopsy of omental carcinomatosisFINAL REPORT CT-guided core biopsy of right omental mass. CLINICAL HISTORY: evaluate for biopsy of omental carcinomatosis. COMPARISON STUDY: CT scan dated May 14, 2018. Informed consent was obtained from the patient and the risks of the procedure were explained including bleeding, infection, damage to bowel, blood vessels, nerves and other adjacent structures. This exam was performed according to our department dose optimization program which includes automated exposure control, adjustment of the mA and/or kV according to the patient's size and/or use of iterative reconstruction technique. Sedation: 1% Xylocaine was utilized as local analgesia. A total of one mg of Versed and 50 mcg of fentanyl were administered using the moderate sedation protocol under the supervision of the physician and nurse. Moderate sedation time: 30 minutes. TECHNIQUE: Using sterile technique,CT fluoroscopic guidance and a 19/20 gauge coaxial core biopsy needle set, a two pass biopsy of the patient's 9.6 x 3.1 cm omental mass in the right abdomen was performed. The sample was submitted to the pathology lab in formalin. COMPLICATIONS: None. ESTIMATED BLOOD LOSS: Minimal. Patient Disposition: The patient was in the same state post procedure as preprocedure. Immediate post procedure fluoroscopic imaging demonstrates no bleeding. IMPRESSION: Successful CT-guided core biopsy of an omental mass. Signed: Dillan Baker Verified Date/Time: 05/16/2018 17:19:26 Reading Location: [facility] [id number] CT Body Reading Room U/S, ENDOVAGINAL (EV)2018-05-16 10:52: 00Reason for exam:->new findings of omental caking on CT; eval ovariesFINAL REPORT TECHNIQUE: Transabdominal and transvaginal grayscale ultrasound of the pelvis with color Doppler and spectral Doppler ultrasound of the ovaries. INDICATION: Omental caking on CT. COMPARISON: CT from 05/14/2018. FINDINGS: Per report, the patient is postmenopausal. UTERUS: The uterus measures 8 x 4.9 x 5.5 cm. The endometrial echo complex measures 0.4 cm, within normal limits. The area measured at the anterior uterus on the ultrasound images may be a leiomyoma which measures 3.5 x 2.1 x 2.7 cm. There are several cystic structures associated with the cervix which may be nabothian cysts. OVARIES/ADNEXA: The right ovary measures 3.7 x 2.7 x 2.9 cm. The left ovary measures 5.8 x 3.1 x 3.1 cm. The left ovary contains multiple anechoic and hypoechoic structures which have the appearance of follicles. Focal calcification in the left ovary measures 0.5 cm. Arterial andvenous flow detected in both ovaries. The ovaries are located immediately adjacent to the uterus. PELVIS: Small volume free fluid. IMPRESSION: The ovaries are immediately adjacent to the uterus. They have a premenopausal appearance with several cystic structures which may be follicles. This would be an abnormal appearance for a postmenopausal woman. Small volume free fluid in the pelvis. Signed: Davon Cervantes Verified Date/Time: 05/16/2018 10:52:01 Reading Location: [facility] [id number] Ultrasound Reading Room U/S, [id number] 10:52:00Reason for exam:->new findings of omental caking on CT; eval ovariesFINAL REPORT TECHNIQUE: Transabdominal and transvaginal grayscale ultrasound of the pelvis with color Doppler and spectral Doppler ultrasound of the ovaries. INDICATION: Omental caking on CT. COMPARISON: CT from 05/14/2018. FINDINGS: Per report, the patient is postmenopausal. UTERUS: The uterus measures 8 x 4.9 x 5.5 cm. The endometrial echo complex measures 0.4 cm, within normal limits. The area measured at the anterior uterus on the ultrasound images may be a leiomyoma which measures 3.5 x 2.1 x 2.7 cm. There are several cystic structures associated with the cervix which may be nabothian cysts. OVARIES/ADNEXA: The right ovary measures 3.7 x 2.7 x 2.9 cm. The left ovary measures 5.8 x 3.1 x 3.1 cm. The left ovary contains multiple anechoic and hypoechoic structures which have the appearance of follicles. Focal calcification in the left ovary measures 0.5 cm. Arterial andvenous flow detected in both ovaries. The ovaries are located immediately adjacent to the uterus. PELVIS: Small volume free fluid. IMPRESSION: The ovaries are immediately adjacent to the uterus. They have a premenopausal appearance with several cystic structures which may be follicles. This would be an abnormal appearance for a postmenopausal woman. Small volume free fluid in the pelvis. Signed: Davon Cervantes MDReport Verified Date/Time: 05/16/2018 10:52:01 Reading Location: [address] Ultrasound Reading Room [id number] 07:28:00 Test Item Value Reference Range Comments PHOSPHORUS (BEAKER) (test qhrn=152) 3.3 mg/dL 2.3-4.7 [id number] 07:28:00 Test Item Value Reference Range Comments MAGNESIUM (BEAKER) (test syst=046) 1.6 mg/dL 1.6-2.6 BASIC METABOLIC [id number] 07:28:00 Test Item Value Reference Range Comments SODIUM (BEAKER) (test 139 meq/L 136-145 aknr=755) POTASSIUM (BEAKER) (test 3.9 meq/L 3.5-5.1 tsgw=623) CHLORIDE (BEAKER) (test 106 meq/L 98-107 nvdm=760) CO2 (BEAKER) (test 23 meq/L 22-29 ymuq=081) BLOOD UREA NITROGEN 7 mg/dL 7-21 (BEAKER) (test ooqf=529) CREATININE (BEAKER) (test 0.66 mg/dL 0.57-1.25 pluf=955) GLUCOSE RANDOM (BEAKER) 95 mg/dL 70-105 (test kqks=152) CALCIUM (BEAKER) (test 8.6 mg/dL 8.4-10.2 vfwe=876) EGFR (BEAKER) (test 93 mL/min/1.73 sq m ESTIMATED GFR IS NOT piee=5372) ACCURATE CREATININE CLEARANCE IN PREDICTING GLOMERULAR FILTRATION RATE. ESTIMATED GFR IS NOT APPLICABLE FOR DIALYSIS PATIENTS. HEPATIC FUNCTION [id number] 07:28:00 Test Item Value Reference Range Comments TOTAL PROTEIN (BEAKER) (test tbre=633) 6.4 gm/dL 6.0-8.3 ALBUMIN (BEAKER) (test ixpn=8688) 3.6 g/dL 3.5-5.0 BILIRUBIN TOTAL (BEAKER) (test rryv=370) 0.6 mg/dL 0.2-1.2 BILIRUBIN DIRECT (BEAKER) (test arzb=335) 0.3 mg/dL 0.1-0.5 ALKALINE PHOSPHATASE (BEAKER) (test eoat=309) 109 U/L 40-150 AST (SGOT) (BEAKER) (test kucv=174) 13 U/L 5-34 ALT (SGPT) (BEAKER) (test xywp=520) 11 U/L 6-55 CARCINOEMBRYONIC ANTIGEN (CEA)2018-05-16 06:40:00 Test Item Value Reference Range Comments CARCINOEMBRYONIC ANTIGEN (BEAKER) (test ando=158) 1.7 ng/mL 0.0-5.0 [id number] 06:08:00 Test Item Value Reference Range Comments PROTIME (BEAKER) (test ulad=645) 15.6 seconds 11.7-14.7 INR (BEAKER) (test xsfp=108) 1.2 <=5.9 PARTIAL THROMBOPLASTIN TIME (BEAKER) (test 32.3 seconds 22.5-36.0 shbx=880) RECOMMENDED COUMADIN/WARFARIN INR THERAPY RANGESSTANDARD DOSE: 2.0 - 3.0 Includes: PROPHYLAXIS forvenous thrombosis, systemic embolization; TREATMENT for venous thrombosis and/or pulmonary embolus.HIGH RISK: Target INR is 2.5-3.5 for patients with mechanical heart valves.CBC W/PLT COUNT & AUTO [id number] 06:06:00 Test Item Value Reference Range Comments WHITE BLOOD CELL COUNT (BEAKER) (test xwhx=486) 7.2 K/ L 3.5-10.5 RED BLOOD CELL COUNT (BEAKER) (test xesa=913) 4.39 M/ L 3.93-5.22 HEMOGLOBIN (BEAKER) (test xbps=513) 12.7 GM/DL 11.2-15.7 HEMATOCRIT (BEAKER) (test ljar=365) 38.5 % 34.1-44.9 MEAN CORPUSCULAR VOLUME (BEAKER) (test jwtl=403) 87.7 fL 79.4-94.8 MEAN CORPUSCULAR HEMOGLOBIN (BEAKER) (test 28.9 pg 25.6-32.2 cqcb=257) MEAN CORPUSCULAR HEMOGLOBIN CONC (BEAKER) (test 33.0 GM/DL 32.2-35.5 glrx=859) RED CELL DISTRIBUTION WIDTH (BEAKER) (test 13.0 % 11.7-14.4 pczk=636) PLATELET COUNT (BEAKER) (test bwkp=909) 277 K/CU MM 150-450 MEAN PLATELET VOLUME (BEAKER) (test mshh=260) 10.2 fL 9.4-12.3 NUCLEATED RED BLOOD CELLS (BEAKER) (test 0 /100 WBC 0-0 ydyq=638) NEUTROPHILS RELATIVE PERCENT (BEAKER) (test 62 % rxwf=355) LYMPHOCYTES RELATIVE PERCENT (BEAKER) (test 24 % zhho=652) MONOCYTES RELATIVE PERCENT (BEAKER) (test 9 % zcuz=456) EOSINOPHILS RELATIVE PERCENT (BEAKER) (test 3 % crzi=484) BASOPHILS RELATIVE PERCENT (BEAKER) (test 1 % wbrc=900) NEUTROPHILS ABSOLUTE COUNT (BEAKER) (test 4.45 K/ L 1.56-6.13 cdxp=157) LYMPHOCYTES ABSOLUTE COUNT (BEAKER) (test 1.70 K/ L 1.18-3.74 xuac=306) MONOCYTES ABSOLUTE COUNT (BEAKER) (test 0.66 K/ L 0.24-0.36 qfqb=485) EOSINOPHILS ABSOLUTE COUNT (BEAKER) (test 0.24 K/ L 0.04-0.36 dtig=335) BASOPHILS ABSOLUTE COUNT (BEAKER) (test 0.07 K/ L 0.01-0.08 rlmi=560) IMMATURE GRANULOCYTES-RELATIVE PERCENT (BEAKER) 0 % 0-1 (test fzaf=4933) U/S, ABDOMINAL, [id number] 13:29:00Please send ascitic fluid for Albumin , protein, cell count with differential, gram stain, culture, cytology. Reason for exam:->concern for omental carcinomatosis.FINAL REPORT History: Concern for omental carcinomatosis COMPARISON: None DISCUSSION : Transverse and longitudinal images of all four quadrants of the abdomen and pelvis were obtained. There is a trace amount of abdominal ascites/free fluid which is insufficient for the performance of a safe ultrasound-guided paracentesis. Therefore, an ultrasound-guided paracentesis was not performed. IMPRESSION: Trace amount of abdominal ascites/free fluid insufficient for the performance of a safe ultrasound-guided paracentesis. Signed: Huong Freedman Verified Date/Time: 05/15/2018 13:29:20 Reading Location: [address] Ultrasound Reading Room HEMOGLOBIN [id number] 08:20:00 Test Item Value Reference Range Comments HEMOGLOBIN A1C (BEAKER) (test zuwp=017) 5.9 % 4.3-6.1 TSH/FREE T4 IF [id number] 06:26:00 Test Item Value Reference Range Comments THYROID STIMULATING HORMONE (BEAKER) (test 1.62 uIU/mL 0.35-4.94 ofls=712) [id number] 06:01:00 Test Item Value Reference Range Comments PHOSPHORUS (BEAKER) (test htit=168) 3.1 mg/dL 2.3-4.7 [id number] 06:01:00 Test Item Value Reference Range Comments MAGNESIUM (BEAKER) (test tyuq=190) 2.1 mg/dL 1.6-2.6 BASIC METABOLIC [id number] 06:01:00 Test Item Value Reference Range Comments SODIUM (BEAKER) (test 140 meq/L 136-145 ollm=450) POTASSIUM (BEAKER) (test 3.8 meq/L 3.5-5.1 vkbl=671) CHLORIDE (BEAKER) (test 108 meq/L 98-107 xqle=661) CO2 (BEAKER) (test 21 meq/L 22-29 tkuv=620) BLOOD UREA NITROGEN 12 mg/dL 7-21 (BEAKER) (test zlnm=069) CREATININE (BEAKER) (test 0.73 mg/dL 0.57-1.25 xdjg=884) GLUCOSE RANDOM (BEAKER) 85 mg/dL 70-105 (test iaji=431) CALCIUM (BEAKER) (test 9.1 mg/dL 8.4-10.2 tjgu=327) EGFR (BEAKER) (test 82 mL/min/1.73 sq m ESTIMATED GFR IS NOT gzwo=9281) ACCURATE CREATININE CLEARANCE IN PREDICTING GLOMERULAR FILTRATION RATE. ESTIMATED GFR IS NOT APPLICABLE FOR DIALYSIS PATIENTS. LIPID [id number] 06:01:00 Test Item Value Reference Range Comments TRIGLYCERIDES (BEAKER) (test mcri=684) 120 mg/dL CHOLESTEROL (BEAKER) (test wknk=224) 228 mg/dL HDL CHOLESTEROL (BEAKER) (test gczj=947) 37 mg/dL LDL CHOLESTEROL CALCULATED (BEAKER) (test 167 mg/dL lkaz=026) Triglyceride Reference Range: Low Risk <150 Borderline 150- 199 High Risk 200-499 Very High Risk >=500Cholesterol Reference Range: Low Risk <200 Borderline 200-239 High Risk > 240HDL Cholesterol Reference Range: Low Risk >=60 High Risk <40LDL Cholesterol Reference Range: Optimal <100 Near Optimal 100-129 Borderline 130-159 High 160-189 Very High >=190HEPATIC FUNCTION [id number] 06:01:00 Test Item Value Reference Range Comments TOTAL PROTEIN (BEAKER) (test hcty=253) 7.0 gm/dL 6.0-8.3 ALBUMIN (BEAKER) (test rbub=5761) 4.0 g/dL 3.5-5.0 BILIRUBIN TOTAL (BEAKER) (test hqlq=257) 0.7 mg/dL 0.2-1.2 BILIRUBIN DIRECT (BEAKER) (test egwv=273) 0.3 mg/dL 0.1-0.5 ALKALINE PHOSPHATASE (BEAKER) (test oqfa=730) 121 U/L 40-150 AST (SGOT) (BEAKER) (test wvoq=015) 15 U/L 5-34 ALT (SGPT) (BEAKER) (test tuhm=508) 12 U/L 6-55 [id number] 06:01:00 Test Item Value Reference Range Comments AMYLASE (BEAKER) (test oroy=393) 34 U/L 25-125 CREATINE KINASE (CK), TOTAL AND [id number] 06:01:00 Test Item Value Reference Range Comments CREATINE KINASE TOTAL (BEAKER) (test cbnp=528) 46 U/L 29-200 CREATINE KINASE-MB (BEAKER) (test sxyy=534) 0.6 ng/mL 0.0-6.6 CREATINE KINASE-MB INDEX (BEAKER) (test vhhg=619) 1.3 % CK-MB Reference Range:<6.7 Normal6.7-10.0 Borderline>10.0 [id number] 06:01:00 Test Item Value Reference Range Comments LIPASE (BEAKER) (test glpc=718) 11 U/L 8-78 C-REACTIVE [id number] 06:01:00 Test Item Value Reference Range Comments C-REACTIVE PROTEIN (BEAKER) (test nzdg=769) 2.75 mg/dL 0.00-0.50 TROPONIN [id number] 05:57:00 Test Item Value Reference Range Comments TROPONIN I (BEAKER) (test lspx=667) < ng/mL 0.00-0.03 Troponin I (TnI) levels must be interpreted in the context of the presenting symptoms and the clinical findings. Elevated TnI levels indicate myocardial damage, but are not specific for ischemic heart disease. Elevated TnI levels are seen in patients with other cardiac conditions (including myocarditis and congestive heart failure), and slight TnI elevations occur in patients with other conditions, including sepsis, renal failure, acidosis, acute neurological disease, and persistent tachyarrhythmia.[id number] 05:42:00 Test Item Value Reference Range Comments PARTIAL THROMBOPLASTIN TIME (BEAKER) (test 30.9 seconds 22.5-36.0 dkxq=709) PROTHROMBIN [id number] 05:41:00 Test Item Value Reference Range Comments PROTIME (BEAKER) (test tpgy=456) 15.6 seconds 11.7-14.7 INR (BEAKER) (test llgv=430) 1.2 <=5.9 RECOMMENDED COUMADIN/WARFARIN INR THERAPY RANGESSTANDARD DOSE: 2.0 - 3.0 Includes: PROPHYLAXIS forvenous thrombosis, systemic embolization; TREATMENT for venous thrombosis and/or pulmonary embolus.HIGH RISK: Target INR is 2.5-3.5 for patients with mechanical heart valves.CBC W/PLT COUNT & AUTO [id number] 05:28:00 Test Item Value Reference Range Comments WHITE BLOOD CELL COUNT (BEAKER) (test kuik=177) 8.7 K/ L 3.5-10.5 RED BLOOD CELL COUNT (BEAKER) (test rohl=693) 4.59 M/ L 3.93-5.22 HEMOGLOBIN (BEAKER) (test auhx=233) 13.2 GM/DL 11.2-15.7 HEMATOCRIT (BEAKER) (test mjxz=822) 40.5 % 34.1-44.9 MEAN CORPUSCULAR VOLUME (BEAKER) (test egpb=386) 88.2 fL 79.4-94.8 MEAN CORPUSCULAR HEMOGLOBIN (BEAKER) (test 28.8 pg 25.6-32.2 krvp=437) MEAN CORPUSCULAR HEMOGLOBIN CONC (BEAKER) (test 32.6 GM/DL 32.2-35.5 efjj=878) RED CELL DISTRIBUTION WIDTH (BEAKER) (test 13.2 % 11.7-14.4 xoor=179) PLATELET COUNT (BEAKER) (test pkgq=778) 281 K/CU MM 150-450 MEAN PLATELET VOLUME (BEAKER) (test rtfi=812) 10.1 fL 9.4-12.3 NUCLEATED RED BLOOD CELLS (BEAKER) (test 0 /100 WBC 0-0 hdjc=566) NEUTROPHILS RELATIVE PERCENT (BEAKER) (test 68 % tyua=407) LYMPHOCYTES RELATIVE PERCENT (BEAKER) (test 21 % bcqz=150) MONOCYTES RELATIVE PERCENT (BEAKER) (test 8 % pufo=852) EOSINOPHILS RELATIVE PERCENT (BEAKER) (test 2 % zjst=077) BASOPHILS RELATIVE PERCENT (BEAKER) (test 1 % gpuy=652) NEUTROPHILS ABSOLUTE COUNT (BEAKER) (test 5.91 K/ L 1.56-6.13 ynug=925) LYMPHOCYTES ABSOLUTE COUNT (BEAKER) (test 1.80 K/ L 1.18-3.74 ubec=829) MONOCYTES ABSOLUTE COUNT (BEAKER) (test 0.72 K/ L 0.24-0.36 rmrr=162) EOSINOPHILS ABSOLUTE COUNT (BEAKER) (test 0.19 K/ L 0.04-0.36 nvmo=225) BASOPHILS ABSOLUTE COUNT (BEAKER) (test 0.07 K/ L 0.01-0.08 zyfd=097) IMMATURE GRANULOCYTES-RELATIVE PERCENT (BEAKER) 1 % 0-1 (test oslo=2208) GLUCOMETER GLUCOSE- LAB USE [id number] 06:47:00 Test Item Value Reference Range Comments GLUCOMETER (test code=GMG) 119 mg/dL 70-100
--- OUTSIDE RECORDS SUMMARY | 2018-12-29 02:36 | XMS REPORT | Clinical Summary ---
:1960 Author Organization [facility] Address [address] [place] [address] Care Team Providers Name Role Phone Unavailable Primary Care Provider Unavailable Allergies Active Allergy Reactions Severity Noted Date Comments Codeine 11/02/2017 Medications Medication Sig Dispensed Refills Start Date End Date Status metoprolol Take 25 mg by 0 Active (LOPRESSOR) 25 MG mouth 2 (two) tablet times daily. lisinopril Take 5 mg by mouth 0 Active (PRINIVIL,ZESTRIL) daily. 5 MG tablet acetaminophen Take 2 tablets 30 tablet 0 05/17/2018 05/12/2019 Active (TYLENOL) 325 MG (650 mg total) by tablet mouth every 6 (six) hours as needed for up to 360 days. docusate sodium Take 1 capsule 30 capsule 0 05/17/2018 05/27/2018 (COLACE) 100 MG (100 mg total) by capsule mouth 2 (two) times daily as needed for Constipation for up to 10 days. HYDROcodone-acetami Take 1 tablet by 30 tablet 0 05/17/2018 05/27/2018 nophen (NORCO mouth every 6 5-325) 5-325 mg per (six) hours as tablet needed for Pain for up to 10 days. Max Daily Amount: 4 tablets HYDROcodone-acetami Take 1 tablet by 30 tablet 0 05/17/2018 05/27/2018 nophen (NORCO mouth every 6 5-325) 5-325 mg per (six) hours as tablet needed for up to 10 days. 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 Encounters Date Type Specialty Care Team Description 06/07/2018 Outside Orders Central Scheduling Leonardo Rodríguez Abdominal MD Kelly carcinomatosis (HCC) (Primary Dx) 05/14/2018 - Hospital Oncology Adio, Titilola Abdominal carcinomatosis (HCC ); 05/17/2018 Adam Velazquez MD Abdominal pain, unspecified abdominal location; [place], Essential hypertension MD José Miguel Pastor Narendra, MD after 12/28/2017 Social History Tobacco Use Types Packs/Day Years Used Date Former Smoker Smokeless Tobacco: Never Used Alcohol Use Drinks/Week oz/Week Comments No Sex Assigned at Date Recorded Not on file Job Start Date Occupation Industry Not on file Not on file Not on file Travel History Travel Start Travel End No recent travel history available. Last Filed Vital Signs Vital Sign Reading Time Taken Blood Pressure 137/87 05/17/2018 7:00 AM CDT Pulse 72 05/17/2018 7:00 AM CDT Temperature 37.2 C (98.9 F) 05/17/2018 7:00 AM CDT Respiratory Rate 20 05/17/2018 7:00 AM CDT Oxygen Saturation 97% 05/17/2018 7:00 AM CDT Inhaled Oxygen Concentration - - Weight 79 kg (174 lb 3.2 oz) 05/17/2018 6:00 AM CDT Height 154.9 cm (5' 1") 05/14/2018 8:00 PM CDT Body Mass Index 32.91 05/17/2018 6:00 AM CDT Plan of Treatment Not on file Procedures Procedure Name Priority Date/Time Associated Comments Diagnosis REPORT OF PROCEDURE - 05/18/2018 12:20 ENDOSCOPY SCAN PM CDT CBC W/PLT COUNT & AUTO Routine 05/17/2018 4:39 Results for this DIFFERENTIAL AM CDT procedure are in the results section. CBC W/PLT COUNT & AUTO Routine 05/17/2018 4:39 Results for this DIFFERENTIAL AM CDT procedure are in the results section. MAGNESIUM Routine 05/17/2018 4:39 Results for this AM CDT procedure are in the results section. PHOSPHORUS Routine 05/17/2018 4:39 Results for this AM CDT procedure are in the results section. HEPATIC FUNCTION PANEL Routine 05/17/2018 4:39 Results for this AM CDT procedure are in the results section. BASIC METABOLIC PANEL Routine 05/17/2018 4:39 Results for this (7) AM CDT procedure are in the results section. TISSUE EXAM AP Routine 05/16/2018 2:00 Results for this PM CDT procedure are in the results section. CT GUIDED BIOPSY ABDOMEN Routine 05/16/2018 1:14 Results for this PM CDT procedure are in the results section. US PELVIS Routine 05/16/2018 8:51 Results for this AM CDT procedure are in the results section. US ENDOVAGINAL EV Routine 05/16/2018 8:51 Results for this AM CDT procedure are in the results section. CBC W/PLT COUNT & AUTO Routine 05/16/2018 5:44 Results for this DIFFERENTIAL AM CDT procedure are in the results section. PT/APTT Routine 05/16/2018 5:44 Results for this AM CDT procedure are in the results section. CARBOHYDRATE ANTIGEN Routine 05/16/2018 5:44 Results for this 19-9 (CA 19-9) AM CDT procedure are in the results section. CARCINOEMBRYONIC ANTIGEN Routine 05/16/2018 5:44 Results for this (CEA) AM CDT procedure are in the results section. CANCER ANTIGEN 125 (CA Routine 05/16/2018 5:44 Results for this 125) AM CDT procedure are in the results section. CBC W/PLT COUNT & AUTO Routine 05/16/2018 5:44 Results for this DIFFERENTIAL AM CDT procedure are in the results section. MAGNESIUM Routine 05/16/2018 5:44 Results for this AM CDT procedure are in the results section. PHOSPHORUS Routine 05/16/2018 5:44 Results for this AM CDT procedure are in the results section. HEPATIC FUNCTION PANEL Routine 05/16/2018 5:44 Results for this AM CDT procedure are in the results section. BASIC METABOLIC PANEL Routine 05/16/2018 5:44 Results for this (7) AM CDT procedure are in the results section. US ABDOMEN LIMITED Routine 05/15/2018 11:36 Results for this AM CDT procedure are in the results section. CBC W/PLT COUNT & AUTO Routine 05/15/2018 5:01 Results for this DIFFERENTIAL AM CDT procedure are in the results section. APTT Routine 05/15/2018 5:01 Results for this AM CDT procedure are in the results section. PROTHROMBIN TIME/INR Routine 05/15/2018 5:01 Results for this AM CDT procedure are in the results section. AMYLASE Routine 05/15/2018 5:01 Results for this AM CDT procedure are in the results section. LIPASE Routine 05/15/2018 5:01 Results for this AM CDT procedure are in the results section. C-REACTIVE PROTEIN Routine 05/15/2018 5:01 Results for this AM CDT procedure are in the results section. TSH/FREE T4 IF INDICATED Routine 05/15/2018 5:01 Results for this AM CDT procedure are in the results section. CREATINE KINASE (CK), Routine 05/15/2018 5:01 Results for this TOTAL AND MB AM CDT procedure are in the results section. TROPONIN I Routine 05/15/2018 5:01 Results for this AM CDT procedure are in the results section. CBC W/PLT COUNT & AUTO Routine 05/15/2018 5:01 Results for this DIFFERENTIAL AM CDT procedure are in the results section. HEMOGLOBIN A1C Routine 05/15/2018 5:01 Results for this AM CDT procedure are in the results section. LIPID PANEL Routine 05/15/2018 5:01 Results for this AM CDT procedure are in the results section. MAGNESIUM Routine 05/15/2018 5:01 Results for this AM CDT procedure are in the results section. PHOSPHORUS Routine 05/15/2018 5:01 Results for this AM CDT procedure are in the results section. HEPATIC FUNCTION PANEL Routine 05/15/2018 5:01 Results for this AM CDT procedure are in the results section. BASIC METABOLIC PANEL Routine 05/15/2018 5:01 Results for this (7) AM CDT procedure are in the results section. after 12/28/2017 Results EKG-SCANNED (05/18/2018 12:20 PM CDT) Narrative Performed At CBC with platelet count + automated diff (05/17/2018 4:39 AM CDT)Only the most recent of3 resultswithin the time period is included. WBC 6.7 3.5 - 10.5 K/L [facility] RBC 4.62 3.93 - 5.22 M/L [facility] Hemoglobin 13.1 11.2 - 15.7 GM/DL [facility] Hematocrit 40.1 34.1 - 44.9 % [facility] MCV 86.8 79.4 - 94.8 fL [facility] MCH 28.4 25.6 - 32.2 pg [facility] MCHC 32.7 32.2 - 35.5 GM/DL [facility] RDW 13.0 11.7 - 14.4 % [facility] Platelets 268 150 - 450 K/CU MM [facility] MPV 10.3 9.4 - 12.3 fL [facility] nRBC 0 0 - 0 /100 WBC [facility] % Neutros 63 % [facility] % Lymphs 23 % [facility] % Monos 9 % [facility] % Eos 3 % [facility] % Baso 1 % [facility] # Neutros 4.22 1.56 - 6.13 K/L [facility] # Lymphs 1.56 1.18 - 3.74 K/L [facility] # Monos 0.61 (H) 0.24 - 0.36 K/L [facility] # Eos 0.23 0.04 - 0.36 K/L [facility] # Baso 0.07 0.01 - 0.08 K/L [facility] Immature Granulocytes-Relative 0 0 - 1 % [facility] Specimen Blood Performing Organization Address City/State/Zipcode Phone Number [facility] [address] [place] [phone] CENTER Phosphorus (05/17/2018 4:39 AM CDT)Only the most recent of3 resultswithin the time period is included. Phosphorus 4.0 2.3 - 4.7 mg/dL [facility] Specimen Blood Performing Organization Address City/State/Zipcode Phone Number [facility] [address] [phone] CENTER Magnesium (05/17/2018 4:39 AM CDT)Only the most recent of3 resultswithin the time period is included. Magnesium 1.8 1.6 - 2.6 mg/dL [facility] Specimen Blood Performing Organization Address City/[facility]/Zipcode Phone Number [address] [address] ORIENTAL Hepatic function panel (05/17/2018 4:39 AM CDT)Only the most recent of3 resultswithin the time period is included. Protein, Total 6.9 6.0 - 8.3 gm/dL [facility] Albumin 4.0 3.5 - 5.0 g/dL [facility] Total Bilirubin 0.8 0.2 - 1.2 mg/dL [facility] Bilirubin, Direct 0.3 0.1 - 0.5 mg/dL [facility] Alkaline Phosphatase 119 40 - 150 U/L [facility] AST 15 5 - 34 U/L [facility] ALT 11 6 - 55 U/L [facility] Specimen Blood Performing Organization Address City/[facility]/Zipcode Phone Number [address] [address] [phone] ORIENTAL Basic metabolic panel (05/17/2018 4:39 AM CDT)Only the most recent of3 resultswithin the time period is included. Sodium 140 136 - 145 meq/L [facility] Potassium 3.9 3.5 - 5.1 meq/L [facility] Chloride 104 98 - 107 meq/L [facility] CO2 26 22 - 29 meq/L [facility] BUN 6 (L) 7 - 21 mg/dL [facility] Creatinine 0.73 0.57 - 1.25 mg/dL [facility] Glucose 98 70 - 105 mg/dL [facility] Calcium 9.4 8.4 - 10.2 mg/dL [facility] EGFR 82Comment: ESTIMATED GFR IS mL/min/1.73 sq m [facility] NOT ACCURATE CREATININE [facility] CENTER CLEARANCE IN PREDICTING GLOMERULAR FILTRATION RATE. ESTIMATED GFR IS NOT APPLICABLE FOR DIALYSIS PATIENTS. Specimen Blood Performing Organization Address City/State/Zipcode Phone Number [facility] [address] [place] [address] [phone] CENTER Tissue Exam (05/16/2018 2:00 PM CDT) Case Report Surgical Pathology Report Case: [id number] [facility] Authorizing Provider:Julito Valdez MDCollected: 05/16/2018 1400 [facility] Ordering Location: [address] Received: 05/16/2018 1357 SERVICE Pathologist: Rosanna Abrams MD Specimen:Omentum DIAGNOSIS OMENTUM, BIOPSY: [facility] - SEROUS ADENOCARCINOMA, LOW GRADE (SEE COMMENT) [facility] Signing Pathologist Direct Phone Line: [phone] COMMENT Sections show clusters of tumor cells in fibroadipose tissue with papillary and glandular arrangement. Focal calcification is seen. By immunohistochemistry, the tumor cells are positive for WT1, PAX8, E [facility] R, CK7, while negative for CK20, CDX2, p40 and synaptophysin. P53 and P16 shows variable staining. Taken together, the morphology and immunoprofile are most compatible with low grade serous adenocarcino [facility]. Clinical/radiological correlation is recommended. Intradepartmental consultation: Dr. Hero Leon has reviewed this case and concurs with the diagnosis. CPT Code(s) 87560, 30832, 78333 x 9 [facility] CLINICAL HISTORY Not given [facility] SPECIMEN SOURCE Omentum biopsy [facility] GROSS DESCRIPTION The specimen is received in a [facility] formalin-filled container and [facility] labeled with the patient's information and labeled "omentum biopsy" and consists of two suarez off white core biopsies ranging in length from 1.1 to 1.5 cm, submitted entirely A1. CG/pl MICROSCOPIC DESCRIPTION Performed. [facility] SPECIAL STUDIES The following special studies were performed on this case and the interpretation is incorporated in the diagnostic report above: [facility] Please see the immunohistochemistry results in the COMMENT section. The immunohistochemistry test was developed and its performance characteristics determined by [facility], Pathology Laboratory. It has not been [...] to perform high complexity clinical laboratory testing. Specimen Tissue Performing Organization Address City/State/Zipcode Phone Number [facility] [address] [place] [address] biopsy abdomen (05/16/2018 1:14 PM CDT) Specimen Narrative Performed At FINAL REPORT [employer] CT-guided core biopsy of right omental mass. [...] sedation time: 30 minutes. TECHNIQUE: Using sterile technique, CT fluoroscopic guidance and a 19/20 gauge coaxial [...] of an omental mass. Signed: Dillan Baker MD Report Verified Date/Time:05/16/2018 17:19:26 Reading Location: [facility] C013Y CT Body Reading Room Procedure Note Interface, External Ris In - 05/16/2018 5:21 PM CDT FINAL REPORT CT-guided core biopsy of right omental [...] sedation time: 30 minutes. TECHNIQUE: Using sterile technique, CT fluoroscopic guidance and a 19/20 gauge coaxial [...] of an omental mass. Signed: Dillan Baker MD Report Verified Date/Time: 05/16/2018 17:19:26 Reading Location: [facility] B1 C013Y CT Body Reading Room Performing Organization Address City/State/Zipcode Phone Number [facility] US Endovaginal (05/16/2018 8:51 AM CDT) Specimen Narrative Performed At FINAL REPORT [employer] TECHNIQUE: Transabdominal and transvaginal grayscale ultrasound of [...] the left ovary measures 0.5 cm. Arterial and venous flow detected in both ovaries. The ovaries are located immediately adjacent to the uterus. PELVIS: Small volume free fluid. IMPRESSION: The ovaries are immediately adjacent to the uterus. They have a premenopausal appearance with several cystic structures which may be follicles. This would be an abnormal appearance for a postmenopausal woman. Small volume free fluid in the pelvis. Signed: Davon Cervantes MD Report Verified Date/Time:05/16/2018 10:52:01 Reading Location: [address] Ultrasound Reading Room Procedure Note Interface, External Ris In - 05/16/2018 10:54 AM CDT FINAL REPORT TECHNIQUE: Transabdominal and transvaginal grayscale ultrasound [...] the left ovary measures 0.5 cm. Arterial and venous flow detected in both ovaries. The ovaries are located immediately adjacent to the uterus. PELVIS: Small volume free fluid. IMPRESSION: The ovaries are immediately adjacent to the uterus. They have a premenopausal appearance with several cystic structures which may be follicles. This would be an abnormal appearance for a postmenopausal woman. Small volume free fluid in the pelvis. Signed: Davon Cervantes MD Report Verified Date/Time: 05/16/2018 10:52:01 Reading Location: [address] Ultrasound Reading Room Performing Organization Address City/State/Zipcode Phone Number [employer] US pelvis (05/16/2018 8:51 AM CDT) Specimen Narrative Performed At FINAL REPORT [employer] TECHNIQUE: Transabdominal and transvaginal grayscale ultrasound of [...] the left ovary measures 0.5 cm. Arterial and venous flow detected in both ovaries. The ovaries are located immediately adjacent to the uterus. PELVIS: Small volume free fluid. IMPRESSION: The ovaries are immediately adjacent to the uterus. They have a premenopausal appearance with several cystic structures which may be follicles. This would be an abnormal appearance for a postmenopausal woman. Small volume free fluid in the pelvis. Signed: Davon Cervantes MD Report Verified Date/Time:05/16/2018 10:52:01 Reading Location: [address] Ultrasound Reading Room Procedure Note Interface, External Ris In - 05/16/2018 10:54 AM CDT FINAL REPORT TECHNIQUE: Transabdominal and transvaginal grayscale ultrasound [...] the left ovary measures 0.5 cm. Arterial and venous flow detected in both ovaries. The ovaries are located immediately adjacent to the uterus. PELVIS: Small volume free fluid. IMPRESSION: The ovaries are immediately adjacent to the uterus. They have a premenopausal appearance with several cystic structures which may be follicles. This would be an abnormal appearance for a postmenopausal woman. Small volume free fluid in the pelvis. Signed: Davon Cervantes MD Report Verified Date/Time: 05/16/2018 10:52:01 Reading Location: [facility] [id number] Ultrasound Reading Room Performing Organization Address City/State/Zipcode Phone Number RIS PT/aPTT (05/16/2018 5:44 AM CDT) Protime 15.6 (H) 11.7 - 14.7 seconds [facility] INR 1.2 <=5.9 [facility] PTT 32.3 22.5 - 36.0 seconds [facility] Specimen Blood Narrative Performed At [facility] RECOMMENDED COUMADIN/WARFARIN INR THERAPY RANGES STANDARD DOSE: 2.0 - 3.0 Includes: PROPHYLAXIS for venous thrombosis, systemic embolization; TREATMENT for venous thrombosis and/or pulmonary embolus. HIGH RISK: Target INR is 2.5-3.5 for patients with mechanical heart valves. Performing Organization Address City/State/Zipcode Phone Number [facility] [address] [place] [address] [phone] CENTER Carbohydrate antigen 19-9 (CA 19-9) (05/16/2018 5:44 AM CDT) CA 19-9 23 <34 U/mL [facility] Comment: This test was performed using the Siemens (Fanwards) Chemiluminescent method. Values obtained from different assay methods cannot be used interchangeably. CA19-9 levels, regardless of value, should not be interpreted as absolute evidence of the presence or absence of disease. Specimen Blood Narrative Performed At Performing Lab [facility] [employer] [place] [address] [place] [address] Casandra Condon MD, PhD, ANNETTE Performing Organization Address City/[facility] Cent[facility] [place] [address] [address] [facility] Cancer Antigen 125 (CA 125) (05/16/2018 5:44 AM CDT) CA 125 2377 (H) <35 U/mL [facility] Comment: This test was performed using the DivvyDown Chemiluminescent method. Values obtained from different assay methods cannot be used interchangeably. CA 125 levels, regardless of value, should not be interpreted as absolute evidence of the presence or absence of disease. Specimen Blood Narrative Performed At Performing Lab [facility] [employer] [place] [address] [place] [address] Casandra Condon MD, PhD, ANNETTE Performing Organization Address City/State/Zipcode Phone Number [facility], [place] [address] [address] [facility] Carcinoembryonic Antigen (CEA) (05/16/2018 5:44 AM CDT) CEA, SERUM 1.7 0.0 - 5.0 ng/mL [facility] Specimen Blood Performing Organization Address City/State/Zipcode Phone Number [facility] [address] [place] [address] [phone] CENTER US abdomen limited (05/15/2018 11:36 AM CDT) Specimen Narrative Performed At FINAL REPORT [facility] History: Concern for omental carcinomatosis COMPARISON: None DISCUSSION: Transverse and longitudinal images of all four quadrants of the abdomen and pelvis were obtained. There is a trace amount of abdominal ascites/free fluid which is insufficient for the performance of a safe ultrasound-guided paracentesis. Therefore, an ultrasound-guided paracentesis was not performed. IMPRESSION: Trace amount of abdominal ascites/free fluid insufficient for the performance of a safe ultrasound-guided paracentesis. Signed: Elizabeth Quiros MD Report Verified Date/Time:05/15/2018 13:29:20 Reading Location: [address] Ultrasound Reading Room Procedure Note Interface, External Ris In - 05/15/2018 1:31 PM CDT FINAL REPORT History: Concern for omental carcinomatosis COMPARISON: None DISCUSSION: Transverse and longitudinal images of all four quadrants of the abdomen and pelvis were obtained. There is a trace amount of abdominal ascites/free fluid which is insufficient for the performance of a safe ultrasound-guided paracentesis. Therefore, an ultrasound-guided paracentesis was not performed. IMPRESSION: Trace amount of abdominal ascites/free fluid insufficient for the performance of a safe ultrasound-guided paracentesis. Signed: Elizabeth Quiros MD Report Verified Date/Time: 05/15/2018 13:29:20 Reading Location: [address] Ultrasound Reading Room Performing Organization Address City/[facility] Cent[facility]ode Phone Number RIS TSH/Free T4 If Indicated (05/15/2018 5:01 AM CDT) TSH 1.62 0.35 - 4.94 uIU/mL [facility] Specimen Blood Performing Organization Address [facility] Center[facility] Phone Number [address] [address] [phone] CENTER C-Reactive Protein (05/15/2018 5:01 AM CDT) CRP 2.75 (H) 0.00 - 0.50 mg/dL [facility] Specimen Blood Performing Organization Address [facility] Phone Number [address] [address] CENTER Troponin I (05/15/2018 5:01 AM CDT) Troponin I <0.01 0.00 - 0.03 ng/mL [facility] Specimen Blood Narrative Performed At [facility] Troponin I (TnI) levels must be interpreted [...] failure, acidosis, acute neurological disease, and persistent tachyarrhythmia. Performing Organization Address [facility] Phone Number [address] [address] CENTER aPTT (05/15/2018 5:01 AM CDT) PTT 30.9 22.5 - 36.0 seconds [facility] Specimen Blood Performing Organization Address [facility] Centercode Phone Number [address] [address] CENTER Prothrombin time/INR (05/15/2018 5:01 AM CDT) Protime 15.6 (H) 11.7 - 14.7 seconds [facility] INR 1.2 <=5.9 [facility] Specimen Blood Narrative Performed At [facility] RECOMMENDED COUMADIN/WARFARIN INR THERAPY RANGES STANDARD DOSE: 2.0 - 3.0 Includes: PROPHYLAXIS for venous thrombosis, systemic embolization; TREATMENT for venous thrombosis and/or pulmonary embolus. HIGH RISK: Target INR is 2.5-3.5 for patients with mechanical heart valves. Performing Organization Address City/State/Zipcode Phone Number [address] [address] CENTER Lipase (05/15/2018 5:01 AM CDT) Lipase 11 8 - 78 U/L [facility] Specimen Blood Performing Organization Address [facility] Phone Number [address] [address] [phone] CENTER Hemoglobin A1c (05/15/2018 5:01 AM CDT) Hemoglobin A1C 5.9 4.3 - 6.1 % [facility] Specimen Blood Performing Organization Address [facility] Phone Number [address] [address] [phone] ORIENTAL Creatine Kinase (CK), Total and MB (05/15/2018 5:01 AM CDT) Total CK 46 29 - 200 U/L [facility] CK-MB 0.6 0.0 - 6.6 ng/mL [facility] MB Relative Index 1.3 % [facility] Specimen Blood Narrative Performed At CK-MB Reference Range: [facility] <6.7Normal 6.7-10.0Borderline >10.0 Abnormal Performing Organization Address City/[facility] Phone Number [address] [address] CENTER Amylase (05/15/2018 5:01 AM CDT) Amylase 34 25 - 125 U/L [facility] Specimen Blood Performing Organization Address [facility]o Phone Number [address] [address] ORIENTAL Lipid panel (05/15/2018 5:01 AM CDT) Triglycerides 120 mg/dL [facility] Cholesterol 228 mg/dL [facility] HDL 37 mg/dL [facility] LDL Calculated 167 mg/dL [facility] Specimen Blood Narrative Performed At [facility] Triglyceride Reference Range: Low Risk <150 [id number] High Risk 200-499 Very High Risk>=500 Cholesterol Reference Range: Low Risk <200 [id number] High Risk>240 HDL Cholesterol Reference Range: Low Risk >=60 High Risk <40 LDL Cholesterol Reference Range: Optimal<100 Near [id number] [id number] [id number] Very High >=190 Performing Organization Address City/[facility]ode Phone Number [address] [address] CENTER after 12/28/2017 Insurance Payer Benefit Plan / Group Subscriber ID Type Phone Address [employer] - [employer] CARE [employer] HMO POS QPOS xxxxxxxxxx HMO/POS Advance Directives For more information, please contact:[place] [address] [place] [phone] Code Status Date Activated Date Inactivated Comments Full Code 05/14/2018 8:57 PM 05/17/2018 3:30 PM This code status was determined by: Patient
[2018-12-29] MEDS ORDERED: HALOPERIDOL LACT 5 MG/ML INJ ONE (02:50)
[2018-12-29] MEDS ORDERED: DIPHENHYDRAMINE 50 MG/ML VIAL ONE (02:50)
[2018-12-29 03:28] LABS: Absolute Monocytes 0.6 K/uL (0.1-1.3); Basophils % 0.7 % (0-1.3); Eosinophils % 0.2 % (0-4.4); Hematocrit 37.1 % (36.0-45.0); Lymphocytes % 11.1 % (15.3-44.8); MPV 7.8 fL (7.6-11.3); Monocytes % 6.5 % (3.3-12.3); RBC Red Blood Cell Count 4.44 M/uL (3.86-4.86)
[2018-12-29] MEDS ORDERED: NA CHLORIDE 0.9% 1,000 ML ONE (03:28)
[2018-12-29 03:35] LABS: Albumin 3.7 g/dL (3.4-5.0); Bilirubin Total 0.5 mg/dL (0.2-1.0); Potassium 3.1 mmol/L (3.5-5.1); Protein, Total 8.1 g/dL (6.4-8.2)
[2018-12-29] MEDS ORDERED: METOCLOPRAMIDE 10 MG/2mL INJ ONE (03:41)
[2018-12-29 04:17] LABS: Anisocytosis 2+; Blood Morphology Comment NOTED (NOT SEEN); Platelet Estimate ADEQ; Urine White Blood Cell Casts OK
[2018-12-29 04:18] LABS: Ovalocytes 2+
[2018-12-29] MEDS ORDERED: FENTANYL CITR 100 MCG/2 ML ONE (05:11)
--- NOTE | 2018-12-29 05:52 | P.HP ---
Certification for Inpatient Patient admitted to: Inpatient With expected LOS: >2 Midnights Practitioner: I am a practitioner with admitting privileges, knowledge of patient current condition, hospital course, and medical plan of care. Services: Services provided to patient in accordance with Admission requirements found in Title 42 Section 412.3 of the Code of Federal Regulations Patient History Date of Service: 12/29/18 Reason for admission: pancolitis History of Present Illness: Mr Kapadia is a 58 years old woman with history of colon cancer, followed up at [facility], S/P bowel resection with cholostomy, in plan for reversion. She start with diffuse abdominal pain last night around 9:00 PM. She also had nausea and vomiting. She denied fever, but has had cold, chills and sweating episodes. She has increased the amount of stools in her cholostomy bag. At arrival, she was afebrile, very nauseated. Lab work shows normal WBC count, hypokalemia, CT abd/pelvis remarkable for diffuse wall thickening of the colon consistent with pancolitis. Home medications list reviewed: Yes - Past Medical/Surgical History -: colon cancer -: cholecystectomy -: bowel resection -: cholostomy - Family History Family History: Reviewed- Non-Contributory - Social History Smoking Status: Never smoker Alcohol use: No CD- Drugs: No Place of Residence: Home Review of Systems 10-point ROS is otherwise unremarkable Physical Examination - Physical Exam General: Alert, In no apparent distress HEENT: Atraumatic, PERRLA, Mucous membr. moist/pink, EOMI, Sclerae nonicteric Neck: Supple, 2+ carotid pulse no bruit, No LAD, Without JVD or thyroid abnormality Respiratory: Clear to auscultation bilaterally, Normal air movement Cardiovascular: Normal S1 S2, No gallops Gastrointestinal: Normal bowel sounds, Tenderness (diffuse) Musculoskeletal: No tenderness Integumentary: No rashes Neurological: Normal speech, Normal strength at 5/5 x4 extr, Normal tone, Normal affect Lymphatics: No axilla or inguinal lymphadenopathy - Studies Laboratory Data (last 24 hrs) 12/29/18 03:00: Sodium 143, Potassium 3.1 L, BUN 9, Creatinine 0.92, Glucose 158 H, Total Bilirubin 0.5, AST 23, ALT 22, Alkaline Phosphatase 119 H 12/29/18 03:00: WBC 8.6, Hgb 12.3, Hct 37.1, Plt Count 299 Assessment and Plan - Problems (Diagnosis) (1) Pancolitis Current Visit: Yes Status: Acute (2) Colon cancer Current Visit: Yes Status: Acute Qualifiers: Colon location: unspecified part of colon Qualified Code(s): C18.9 - Malignant neoplasm of colon, unspecified (3) Hypokalemia Current Visit: Yes Status: Acute - Plan The patient will be admitted to the hospital due to pancolitis. Will start empiric treatment with IV Cipro and Flagyl. Also symptomatic medication for vomiting and pain. - Advance Directives Does patient have a Living Will: No Does patient have a Durable POA for Healthcare: No - Code Status/Comfort Care Code Status Assessed: Yes Code Status: Full Code
--- NOTE | 2018-12-29 05:57 | EDPHYS ---
Physician Documentation [facility] Name: Guerrero Kapadia Age: 58 yrs Sex: Female : 1960 Arrival Date: 12/29/2018 Time: 02:37 Bed 6 Private MD: ED Physician Tadeo Garcia HPI: 12/29 03:26 This 58 yrs old Female presents to ER via EMS with complaints of nausea and ps1 vomiting. 03:26 patient has a history of hypertension and ovarian cancer s/p removal. Sees Dr. Koch ps1 at [facility]. Only on Morphine IR/ER and HTN meds. Does have Phenergan for nausea. States since 9 PM tonight she started retching uncontrollably. Pt called EMS after taking 2 Phenergan without relief. . Historical: - Allergies: 03:21 Codeine; ak1 - PMHx: 03:21 Left ventricular hypertrophy; ovarian cancer; ak1 - PSHx: 03:21 Cholecystectomy; Bowel resection; Colostomy; ak1 - Immunization history:: Adult Immunizations unknown. - Social history:: Smoking status: unknown. - Ebola Screening: : No symptoms or risks identified at this time. ROS: 03:26 Constitutional: Negative for fever, chills, and weight loss, Eyes: Negative for injury, ps1 pain, redness, and discharge, ENT: Negative for injury, pain, and discharge, Neck: Negative for injury, pain, and swelling, Cardiovascular: Negative for chest pain, palpitations, and edema, Respiratory: Negative for shortness of breath, cough, wheezing, and pleuritic chest pain, MS/Extremity: Negative for injury and deformity, Skin: Negative for injury, rash, and discoloration, Neuro: Negative for headache, weakness, numbness, tingling, and seizure. 03:26 Abdomen/GI: Positive for nausea and vomiting. Exam: 03:26 Constitutional: This is a well developed, well nourished patient who is awake, alert, ps1 and in no acute distress. Head/Face: Normocephalic, atraumatic. Eyes: Pupils equal round and reactive to light, extra-ocular motions intact. Lids and lashes normal. Conjunctiva and sclera are non-icteric and not injected. Chest/axilla: Normal chest wall appearance and motion. Nontender with no deformity. No lesions are appreciated. Cardiovascular: Regular rate and rhythm. No gallops, murmurs, or rubs. Normal PMI, no JVD. No pulse deficits. Respiratory: Lungs have equal breath sounds bilaterally, clear to auscultation and percussion. No rales, rhonchi or wheezes noted. No increased work of breathing, no retractions or nasal flaring. Skin: Warm, dry with normal turgor. Normal color with no rashes, no lesions, and no evidence of cellulitis. MS/ Extremity: Pulses equal, no cyanosis. Neurovascular intact. Full, normal range of motion. Neuro: Awake and alert, GCS 15, oriented to person, place, time, and situation. Cranial nerves II-XII grossly intact. Sensory grossly intact. 03:26 Abdomen/GI: Inspection: abdomen appears normal, Bowel sounds: normal, colostomy bag. Vital Signs: 03:14 BP 144 / 122; Pulse 78; Resp 22; Temp 97.5(TE); Pulse Ox 97% on R/A; Weight 68.04 kg ak1 (R); Height 5 ft. 3 in. (160.02 cm) (R); Pain 10/10; 03:30 BP 125 / 114; Pulse 93; Resp 20; Pulse Ox 97% on R/A; ak1 03:43 BP 151 / 85; Pulse 77; Resp 20; ak1 04:15 BP 142 / 77; Pulse 68; Resp 18 S; Pulse Ox 100% on R/A; cc3 05:02 BP 119 / 91; Pulse 70; Resp 20 S; Pulse Ox 98% on R/A; cc3 06:04 BP 148 / 111; Pulse 71; Resp 19 S; Pulse Ox 100% on R/A; cc3 03:14 Body Mass Index 26.57 (68.04 kg, 160.02 cm) ak1 MDM: 03:12 Patient medically screened. ps1 12/29 02:37 Order name: CBC with Diff; Complete Time: 04:23 ps1 12/29 02:37 Order name: CMP; Complete Time: 03:36 ps1 12/29 03:31 Order name: CBC Smear Scan; Complete Time: 04:23 EDMS 12/29 03:37 Order name: CT Abd/Pelvis - W/Contrast ps1 Administered Medications: 03:09 Drug: HALdol 2.5 mg Route: IVP; Site: left wrist; ak1 03:29 Follow up: Response: No adverse reaction; Nausea is decreased ak1 03:09 Drug: Benadryl 50 mg Route: IVP; Site: left wrist; ak1 03:29 Follow up: Response: No adverse reaction; Nausea is decreased ak1 03:15 Drug: NS 0.9% 1000 ml Route: IV; Rate: 1 bolus; Site: left antecubital; cc3 05:00 Follow up: IV Status: Completed infusion; IV Intake: 1000ml ak1 03:19 Drug: HALdol 2.5 mg Route: IVP; Site: left antecubital; ak1 03:30 Follow up: Response: No adverse reaction; Nausea is decreased ak1 03:29 Drug: Reglan 10 mg Route: IVP; Site: left antecubital; ak1 03:53 Follow up: Response: No adverse reaction ak1 05:00 Drug: fentaNYL (PF) 50 mcg Route: IVP; Site: left antecubital; cc3 05:30 Follow up: Response: No adverse reaction; Pain is decreased cc3 06:04 Drug: Zofran 4 mg Route: IVP; Site: left antecubital; ak1 06:22 Follow up: Response: No adverse reaction; Nausea unchanged; Nausea unchanged, pt ak1 continues to dry heave. 06:04 Drug: morphine 2 mg Route: IVP; Site: left antecubital; ak1 06:22 Follow up: Response: No adverse reaction ak1 Disposition: 12/29/18 05:55 Hospitalization ordered by Isaiah Schaefer for Inpatient Admission. Preliminary diagnosis is Pancolitis. - Bed requested for Telemetry/MedSurg (Inpatient). - Status is Inpatient Admission. ak1 - Condition is Stable. - Problem is new. - Symptoms have improved. UTI on Admission? No Signatures: Dispatcher [employer] EDMS Leslie Caraballo RN RN ak1 Layla Rodriguez RN RN Tadeo Gacria MD MD [facility] Angela Majano cc3 Corrections: (The following items were deleted from the chart) 06:16 05:55 Hospitalization Ordered by Isaiah Schaefer MD for Inpatient Admission. Preliminary cg diagnosis is Pancolitis. Bed requested for Telemetry/MedSurg (Inpatient). Status is Inpatient Admission. Condition is Stable. Problem is new. Symptoms have improved. UTI on Admission? No. ps1 06:53 06:16 12/29/2018 05:55 Hospitalization Ordered by Isaiah Schaefer MD for Inpatient ak1 Admission. Preliminary diagnosis is Pancolitis. Bed requested for Telemetry/MedSurg (Inpatient). Status is Inpatient Admission. Condition is Stable. Problem is new. Symptoms have improved. UTI on Admission? No. cg
--- NOTE | 2018-12-29 05:57 | ER ---
Nurse's Notes [facility] Name: Guerrero Kapadia Age: 58 yrs Sex: Female : 1960 Arrival Date: 12/29/2018 Time: 02:37 Bed 6 Private MD: Diagnosis: Pancolitis Presentation: 12/29 03:15 Presenting complaint: EMS states: pt with N/V X1 day. pt with hx ovarian cancer. pt is ak1 seen at [facility]. 4mg zofran IVP in route. Transition of care: patient was not received from another setting of care. Onset of symptoms was December 29, 2018. Risk Assessment: Do you want to hurt yourself or someone else? Patient reports no desire to harm self or others. Care prior to arrival: 22g IV to left wrist. 4mg zofran IVP. 03:15 Method Of Arrival: EMS: [facility] ak 03:15 Acuity: JEAN CLAUDE 3 ak1 03:52 Initial Sepsis Screen: Does the patient meet any 2 criteria? RR > 20 per min. Does the ak1 patient have a suspected source of infection? No. Patient's initial sepsis screen is negative. Triage Assessment: 03:15 General: Appears uncomfortable, Behavior is anxious, restless. Pain: Complains of pain ak1 in abdomen. EENT: No signs and/or symptoms were reported regarding the EENT system. Neuro: No deficits noted. Cardiovascular: No deficits noted. Respiratory: Respiratory effort is pursed lip, hyperventilating. GI: Abdomen is round non-distended, Colostomy site Ostomy appliance is intact. pt c/o N/V Reports nausea, vomiting. : No signs and/or symptoms were reported regarding the genitourinary system. Derm: No signs and/or symptoms reported regarding the dermatologic system. Musculoskeletal: No signs and/or symptoms reported regarding the musculoskeletal system. Historical: - Allergies: 03:21 Codeine; ak1 - PMHx: 03:21 Left ventricular hypertrophy; ovarian cancer; ak1 - PSHx: 03:21 Cholecystectomy; Bowel resection; Colostomy; ak1 - Immunization history:: Adult Immunizations unknown. - Social history:: Smoking status: unknown. - Ebola Screening: : No symptoms or risks identified at this time. Screenin:45 Abuse screen: Denies threats or abuse. Denies injuries from another. Nutritional ak1 screening: No deficits noted. Tuberculosis screening: No symptoms or risk factors identified. Fall Risk 03:45 Fall Risk IV access (20 points). ak1 Assessment: 03:44 General: Appears uncomfortable, uncomfortable but more relaxed than upon arrival. pt ak1 able to ambulate to wheelchair and then to restroom. . 03:51 Reassessment: pt urinated in bed. linens changed. pt refused gown, refused brief. ak1 04:15 Reassessment: Patient appears in no apparent distress at this time. Patient and/or cc3 family updated on plan of care and expected duration. Pain level reassessed. Patient is alert, oriented x 3, equal unlabored respirations, skin warm/dry/pink. Patient came back from CT scan department, awaiting result. 05:40 Reassessment: Patient appears in no apparent distress at this time. pt assisted to [facility] restroom via wheelchair. pt refused to allow for wheelchair to be locked, just stood and returned to ER stretcher. Dr. Schaefer at bedside now. 06:05 Reassessment: Patient appears in no apparent distress at this time. Patient and/or cc3 family updated on plan of care and expected duration. Pain level reassessed. Patient is alert, oriented x 3, equal unlabored respirations, skin warm/dry/pink. 06:20 Reassessment: Patient appears in no apparent distress at this time. Patient and/or cc3 family updated on plan of care and expected duration. Pain level reassessed. Patient is alert, oriented x 3, equal unlabored respirations, skin warm/dry/pink. Room available in 426, called for report but as per the in charge the nurse who will receive will just call me back. 06:39 Reassessment: Patient appears in no apparent distress at this time. Patient and/or cc3 family updated on plan of care and expected duration. Pain level reassessed. Patient is alert, oriented x 3, equal unlabored respirations, skin warm/dry/pink. RN Savita Funes called and report handed over to her for continuity of care and management. 06:51 Reassessment: pt A\T\OX4 ambulatory to wheelchair for transport to 426. pt continues to ak1 c/o abd pain and nausea. Vital Signs: 03:14 BP 144 / 122; Pulse 78; Resp 22; Temp 97.5(TE); Pulse Ox 97% on R/A; Weight 68.04 kg ak1 (R); Height 5 ft. 3 in. (160.02 cm) (R); Pain 10/10; 03:30 BP 125 / 114; Pulse 93; Resp 20; Pulse Ox 97% on R/A; ak1 03:43 BP 151 / 85; Pulse 77; Resp 20; ak1 04:15 BP 142 / 77; Pulse 68; Resp 18 S; Pulse Ox 100% on R/A; cc3 05:02 BP 119 / 91; Pulse 70; Resp 20 S; Pulse Ox 98% on R/A; cc3 06:04 BP 148 / 111; Pulse 71; Resp 19 S; Pulse Ox 100% on R/A; cc3 03:14 Body Mass Index 26.57 (68.04 kg, 160.02 cm) ak1 ED Course: 02:36 Tadeo Garcia MD is Attending Physician. ps1 02:37 Patient arrived in ED. ds1 03:00 Inserted saline lock: 22 gauge in left antecubital area, using aseptic technique. Blood ak1 collected. Patient admitted, IV remains in place. 03:00 Maintain EMS IV. Dressing intact. Gauge \T\ site: 22g left wrist . ak1 03:09 Leslie Caraballo, RN is Primary Nurse. ak1 03:15 Arm band placed on Patient placed in an exam room, on a stretcher, on pulse oximetry. ak1 03:16 Triage completed. ak1 03:45 Patient has correct armband on for positive identification. Bed in low position. Call ak1 light in reach. Side rails up X2. Adult w/ patient. pt refuses to leave pulse oximetry or blood pressure cuff on. 04:23 CT completed. Patient tolerated procedure well. Patient moved to CT via stretcher. Patient moved back from CT. 04:41 CT Abd/Pelvis - W/Contrast In Process Unspecified. EDMS 05:46 No provider procedures requiring assistance completed. ak1 05:54 Isaiah Schaefer MD is Hospitalizing Provider. ps1 Administered Medications: 03:09 Drug: HALdol 2.5 mg Route: IVP; Site: left wrist; ak1 03:29 Follow up: Response: No adverse reaction; Nausea is decreased ak1 03:09 Drug: Benadryl 50 mg Route: IVP; Site: left wrist; ak1 03:29 Follow up: Response: No adverse reaction; Nausea is decreased ak1 03:15 Drug: NS 0.9% 1000 ml Route: IV; Rate: 1 bolus; Site: left antecubital; cc3 05:00 Follow up: IV Status: Completed infusion; IV Intake: 1000ml ak1 03:19 Drug: HALdol 2.5 mg Route: IVP; Site: left antecubital; ak1 03:30 Follow up: Response: No adverse reaction; Nausea is decreased ak1 03:29 Drug: Reglan 10 mg Route: IVP; Site: left antecubital; ak1 03:53 Follow up: Response: No adverse reaction ak1 05:00 Drug: fentaNYL (PF) 50 mcg Route: IVP; Site: left antecubital; cc3 05:30 Follow up: Response: No adverse reaction; Pain is decreased cc3 06:04 Drug: Zofran 4 mg Route: IVP; Site: left antecubital; ak1 06:22 Follow up: Response: No adverse reaction; Nausea unchanged; Nausea unchanged, pt ak1 continues to dry heave. 06:04 Drug: morphine 2 mg Route: IVP; Site: left antecubital; ak1 06:22 Follow up: Response: No adverse reaction ak1 Intake: 05:00 IV: 1000ml; Total: 1000ml. ak1 Outcome: 05:47 Condition: stable ak1 05:47 Instructed on the need for admit. 05:55 Decision to Hospitalize by Provider. ps1 06:52 Admitted to Med/surg accompanied by nurse, via wheelchair, room 426, with chart. ak1 06:53 Patient left the ED. ak1 Signatures: Dispatcher [employer] EDMS [place] Demi ds1 Leslie Caraballo RN RN ak1 Tadeo Garcia MD MD ps1 Angela Majano cc3
[2018-12-29] MEDS ORDERED: ONDANSETRON 4 MG/2 ML VIAL ONE (06:12)
[2018-12-29] MEDS ORDERED: MORPHINE 2 MG/ML SYR ONE (06:12)
[2018-12-29] MEDS ORDERED: ACETAMINOPHEN 500 MG TAB PO PRN (07:16)
[2018-12-29] MEDS ORDERED: ONDANSETRON 4 MG/2 ML VIAL IV PRN (07:16)
[2018-12-29] MEDS: METRONIDAZOLE 500mg IVPB 500 MG/100 ML BAG IV SCH ×3 (08:05→17:27)
[2018-12-29] MEDS: KCL 20 MEQ/100 mL IVPB 20 MEQ/100 ML BAG IV SCH ×2 (08:05→13:15)
[2018-12-29] MEDS: NA CHLORIDE 0.9% 1,000 ML IV SCH ×3 (08:07→21:13)
[2018-12-29] MEDS: ENOXAPARIN 40 MG/0.4 ML SQ SCH (08:15)
[2018-12-29] MEDS: CIPROFLOXACIN 400mg IV 400 MG/200 ML BAG IV SCH ×2 (08:15→21:13)
[2018-12-29] MEDS: MORPHINE 2 MG/ML SYR IV PRN ×2 (09:50→19:40)
[2018-12-29] MEDS ORDERED: LORazepam 2 MG/ML VIAL IV ONE (10:01)
--- NOTE | 2018-12-29 13:13 | P.PN ---
Subjective Date of Service: 12/29/18 Chief Complaint: pancolitis In and examined chart reviewed and case discussed with RN and patient complaining of agitation restlessness. States that IV Benadryl has the opposite effect on her. Complaining of nausea and 1 episode of emesis while I was in the room Review of Systems 10-point ROS is otherwise unremarkable Gastrointestinal: As per HPI Physical Examination - Vital Signs Temperature: 99.0 F Blood Pressure: 176/71 Pulse: 80 Respirations: 19 Pulse Ox (%): 96 - Physical Exam General: Alert, Oriented x3, Moderate distress, Other (Ill-appearing female) HEENT: Atraumatic, PERRLA, EOMI Neck: Supple, JVD not distended Respiratory: Clear to auscultation bilaterally, Normal air movement Cardiovascular: No edema, Normal pulses, Regular rate/rhythm, Normal S1 S2 Gastrointestinal: Normal bowel sounds, Soft and benign, Non-distended, No rebound, Other (Ileostomy bag in place), Tenderness Musculoskeletal: No tenderness Integumentary: No rashes Neurological: Normal speech, Normal tone, Normal affect - Studies Laboratory Data (last 24 hrs) 12/29/18 03:00: Sodium 143, Potassium 3.1 L, BUN 9, Creatinine 0.92, Glucose 158 H, Total Bilirubin 0.5, AST 23, ALT 22, Alkaline Phosphatase 119 H 12/29/18 03:00: WBC 8.6, Hgb 12.3, Hct 37.1, Plt Count 299 Medications List Reviewed: Yes Assessment And Plan - Current Problems (Diagnosis) (1) Pancolitis Current Visit: Yes Status: Acute (2) Intractable nausea and vomiting Current Visit: Yes Status: Acute (3) Hypokalemia Current Visit: Yes Status: Acute (4) Colon cancer Current Visit: Yes Status: Acute Qualifiers: Colon location: unspecified part of colon Qualified Code(s): C18.9 - Malignant neoplasm of colon, unspecified - Plan Patient still having pain in significant amount of nausea and vomiting. Ativan 1 mg IV x 1 for HD patient Switch Benadryl to p.o. Will change Zofran to q.4 hr p.r.n. Continue IV fluids Continue IV antibiotics DVT prophylaxis with Lovenox Supportive care tax services specialist consult patient needs to establish care with PCP Discharge Plan: Home Plan to discharge in: 48 Hours
[2018-12-29] MEDS: ONDANSETRON 4 MG/2 ML VIAL IV PRN ×3 (14:28→22:51)
[2018-12-29] MEDS: METOPROLOL TAR 25 MG TAB PO SCH (21:14)
[2018-12-30] MEDS ORDERED: POTASSIUM CL SA 10 MEQ TAB PO ONE ×2 (00:25→01:21)
[2018-12-30] MEDS: METRONIDAZOLE 500mg IVPB 500 MG/100 ML BAG IV SCH ×4 (00:52→23:59)
[2018-12-30] MEDS ORDERED: PROMETHAZINE 25 MG/ML VIAL IV ONE (01:36)
[2018-12-30] MEDS: NA CHLORIDE 0.9% 1,000 ML IV SCH ×3 (03:16→20:06)
[2018-12-30] MEDS: ONDANSETRON 4 MG/2 ML VIAL IV PRN ×4 (06:01→20:06)
[2018-12-30 06:21] LABS: Absolute Lymphocytes (CBC) 1.1 K/uL (0.7-4.9); Absolute Monocytes 0.7 K/uL (0.1-1.3); Absolute Neutrophil 8.9 K/uL (1.8-8.0); Basophils % 0.5 % (0-1.3); Eosinophils % 0.1 % (0-4.4); Hematocrit 35.6 % (36.0-45.0); Lymphocytes % 10.6 % (15.3-44.8); MPV 7.6 fL (7.6-11.3); Monocytes % 6.6 % (3.3-12.3); Potassium 3.3 mmol/L (3.5-5.1); RBC Red Blood Cell Count 4.24 M/uL (3.86-4.86)
[2018-12-30] MEDS ORDERED: POTASSIUM CL 40 MEQ in NA CHLORIDE 0.9% 500 ML IV SCH (08:00)
[2018-12-30] MEDS: MORPHINE 2 MG/ML SYR IV PRN ×2 (09:32→15:13)
[2018-12-30] MEDS: METOPROLOL TAR 25 MG TAB PO SCH ×2 (09:34→20:07)
[2018-12-30] MEDS: ENOXAPARIN 40 MG/0.4 ML SQ SCH (09:34)
[2018-12-30] MEDS: CIPROFLOXACIN 400mg IV 400 MG/200 ML BAG IV SCH ×2 (09:35→20:07)
[2018-12-30] MEDS: LORazepam 2 MG/ML VIAL IV PRN ×2 (11:47→20:06)
[2018-12-30] MEDS: PROMETHAZINE 25 MG/ML VIAL IV PRN ×2 (11:48→23:59)
[2018-12-30 12:00] LABS: Urine Appearance CLEAR; Urine Bilirubin NEGATIVE (NEG); Urine Blood TRACE (NEG); Urine Color YELLOW; Urine Glucose NEGATIVE (NEG); Urine Protein NEGATIVE (NEG); Urine Urobilinogen 0.2 mg/dL (0.2-1.0); Urine pH 6.5 (5.0-7.0)
[2018-12-30 12:41] LABS: Urine Bacteria <20 /HPF (<20); Urine Culture Reflex Order NOT NEEDED; Urine RBC <5 /HPF (NONE SEEN)
[2018-12-30] MEDS ORDERED: SIMETHICONE 125 MG TAB PO PRN (13:06)
--- NOTE | 2018-12-30 15:30 | P.PN ---
Subjective Date of Service: 12/30/18 Chief Complaint: pancolitis Patient seen and examined chart reviewed and case discussed with RN and patient complaining of nausea. Pain is still present. Not able to tolerate liquids Review of Systems 10-point ROS is otherwise unremarkable Physical Examination - Vital Signs Temperature: 97.6 F Blood Pressure: 172/77 Pulse: 58 Respirations: 16 Pulse Ox (%): 98 - Physical Exam General: Alert, Oriented x3, Mild distress, Other (Ill-appearing female) HEENT: Atraumatic, PERRLA, EOMI Neck: Supple, JVD not distended Respiratory: Clear to auscultation bilaterally, Normal air movement Cardiovascular: No edema, Normal pulses, Regular rate/rhythm, Normal S1 S2 Gastrointestinal: Normal bowel sounds, Soft and benign, Non-distended, No rebound, No guarding, Tenderness Musculoskeletal: No tenderness Integumentary: No rashes Neurological: Normal speech, Normal tone, Normal affect - Studies Laboratory Last Values WBC 10.8 K/uL (4.3-10.9) D 12/30/18 05:52 RBC 4.24 M/uL (3.86-4.86) 12/30/18 05:52 Hgb 11.8 g/dL (12.0-15.0) L 12/30/18 05:52 Hct 35.6 % (36.0-45.0) L 12/30/18 05:52 MCV 83.9 fL (80-100) 12/30/18 05:52 MCH 27.9 pg (27.0-35.0) 12/30/18 05:52 MCHC 33.2 g/dL (32.0-36.0) 12/30/18 05:52 RDW 24.4 % (12.1-15.2) H 12/30/18 05:52 Plt Count 330 K/uL (152-406) 12/30/18 05:52 MPV 7.6 fL (7.6-11.3) 12/30/18 05:52 Plt Distribution Width Cancelled 12/30/18 07:00 Absolute Nucleated RBC Cancelled 12/30/18 07:00 Neutrophils % 82.2 % (41.7-73.7) H 12/30/18 05:52 Lymphocytes % 10.6 % (15.3-44.8) L 12/30/18 05:52 Monocytes % 6.6 % (3.3-12.3) 12/30/18 05:52 Eosinophils % 0.1 % (0-4.4) 12/30/18 05:52 Basophils % 0.5 % (0-1.3) 12/30/18 05:52 Nucleated RBC % Cancelled 12/30/18 07:00 Absolute Neutrophils 8.9 K/uL (1.8-8.0) H 12/30/18 05:52 Absolute Lymphocytes 1.1 K/uL (0.7-4.9) 12/30/18 05:52 Absolute Monocytes 0.7 K/uL (0.1-1.3) 12/30/18 05:52 Absolute Eosinophils 0.0 K/uL (0-0.5) 12/30/18 05:52 Absolute Basophils 0.1 K/uL (0-0.5) 12/30/18 05:52 Diff Path Review Cancelled 12/30/18 07:00 Anisocytosis 2+ 12/29/18 03:00 Ovalocytes 2+ 12/29/18 03:00 Morphology Comment Noted (NOT SEEN) 12/29/18 03:00 Sodium 140 mmol/L (136-145) 12/30/18 05:52 Potassium 3.3 mmol/L (3.5-5.1) L 12/30/18 05:52 Chloride 107 mmol/L (98-107) 12/30/18 05:52 Carbon Dioxide 24 mmol/L (21-32) 12/30/18 05:52 BUN 8 mg/dL (7-18) 12/30/18 05:52 Creatinine 0.76 mg/dL (0.55-1.3) 12/30/18 05:52 Estimated GFR 79 mL/min (=/>90) L 12/30/18 05:52 Glucose 127 mg/dL (74-106) H 12/30/18 05:52 Calcium 9.0 mg/dL (8.5-10.1) 12/30/18 05:52 Total Bilirubin 0.5 mg/dL (0.2-1.0) 12/29/18 03:00 AST 23 U/L (15-37) 12/29/18 03:00 ALT 22 U/L (12-78) 12/29/18 03:00 Alkaline Phosphatase 119 U/L (45-117) H 12/29/18 03:00 Serum Total Protein 8.1 g/dL (6.4-8.2) 12/29/18 03:00 Albumin 3.7 g/dL (3.4-5.0) 12/29/18 03:00 Globulin 4.4 g/dL (2.3-3.5) H 12/29/18 03:00 Albumin/Globulin Ratio 0.8 (1.1-1.8) L 12/29/18 03:00 Urine Color Yellow 12/30/18 10:15 Urine Appearance Clear 12/30/18 10:15 Urine pH 6.5 (5.0-7.0) 12/30/18 10:15 Ur Specific [place] 1.010 (1.005-1.030) 12/30/18 10:15 Urine Ketones 1+ (NEG) H 12/30/18 10:15 Urine Blood Trace (NEG) H 12/30/18 10:15 Urine Nitrite Negative (NEG) 12/30/18 10:15 Urine Bilirubin Negative (NEG) 12/30/18 10:15 Urine Urobilinogen 0.2 mg/dL (0.2-1.0) 12/30/18 10:15 Ur Leukocyte Esterase Negative (NEG) 12/30/18 10:15 Urine RBC <5 /HPF (NONE SEEN) 12/30/18 10:15 Urine WBC <5 /HPF (<5) 12/30/18 10:15 Ur Squamous Epith Cells <5 /HPF (NONE SEEN) 12/30/18 10:15 Urine Bacteria <20 /HPF (<20) 12/30/18 10:15 Urine Culture Reflexed Not needed 12/30/18 10:15 Urine Glucose Negative (NEG) 12/30/18 10:15 Urine Total Protein Negative (NEG) 12/30/18 10:15 Medications List Reviewed: Yes Assessment And Plan - Current Problems (Diagnosis) (1) Pancolitis Current Visit: Yes Status: Acute (2) Intractable nausea and vomiting Current Visit: Yes Status: Acute (3) Hypokalemia Current Visit: Yes Status: Acute (4) Colon cancer Current Visit: Yes Status: Acute Qualifiers: Colon location: unspecified part of colon Qualified Code(s): C18.9 - Malignant neoplasm of colon, unspecified - Plan Patient still has nausea. Will change anti emetics to include Phenergan. Abdominal Pain is better but unable to tolerate clear liquids at this time replace electrolytes and monitor Continue IV fluids Continue IV antibiotics DVT prophylaxis with Lovenox Supportive care social services consult patient needs to establish care with PCP
[2018-12-31] MEDS: MORPHINE 2 MG/ML SYR IV PRN ×4 (01:42→20:07)
[2018-12-31] MEDS: ONDANSETRON 4 MG/2 ML VIAL IV PRN ×4 (01:43→20:06)
[2018-12-31] MEDS ORDERED: KCL 20 MEQ/100 mL IVPB 20 MEQ/100 ML BAG IV SCH (03:00)
[2018-12-31] MEDS: PROMETHAZINE 25 MG/ML VIAL IV PRN ×4 (04:58→22:44)
[2018-12-31 06:40] LABS: Potassium 3.5 mmol/L (3.5-5.1)
[2018-12-31] MEDS ORDERED: NA CHLORIDE 0.9% IV SCH (07:00)
[2018-12-31] MEDS ORDERED: POTASSIUM CL IV SCH (07:00)
[2018-12-31] MEDS: METOPROLOL TAR 25 MG TAB PO SCH ×2 (09:13→21:00)
[2018-12-31] MEDS: ENOXAPARIN 40 MG/0.4 ML SQ SCH (09:13)
[2018-12-31] MEDS: METRONIDAZOLE 500mg IVPB 500 MG/100 ML BAG IV SCH ×2 (09:15→16:07)
[2018-12-31] MEDS: CIPROFLOXACIN 400mg IV 400 MG/200 ML BAG IV SCH ×2 (09:15→20:07)
[2018-12-31] MEDS: NA CHLORIDE 0.9% 1,000 ML IV SCH ×2 (09:16→14:13)
--- NOTE | 2018-12-31 11:41 | RAD REPORT ---
EXAM DESCRIPTION: CT ABDOMEN AND PELVIS WITH CONTRAST CLINICAL HISTORY: Had ovarian CA;Abd pain COMPARISON: 05/14/2018 TECHNIQUE: CT of the abdomen and pelvis performed following IV administration of iodinated contrast. DLP: 1442.2 mGycm FINDINGS: Lung Bases: The visualized lung bases are clear. Bones: Degenerative change of the spine. Abdomen: Liver: The liver has normal size and decreased density. No intrahepatic mass or biliary dilatation. Gallbladder: Prior cholecystectomy. Spleen, Pancreas, and Adrenal Glands: The spleen, pancreas, and adrenal glands are unremarkable. Kidneys: The kidneys have normal size and contour without evidence of solid mass or hydronephrosis. Vasculature: Aortoiliac atherosclerosis. Retroaortic left renal vein. IVC is otherwise unremarkable. The portal vein is patent. The proximal visceral and renal arteries are patent. Stomach: The stomach and duodenum have normal course. Other: No free intraperitoneal air. Previously identified omental caking is not definitely visualiz ed on today's study. Trace free fluid. Pelvis: Bladder: Urinary bladder is unremarkable. Bowel: Right anterior ostomy. Diffuse wall thickening throughout the colon. Rectosigmoid anastomosi s. Right anterior osteophyte. No dilated loops of bowel. Appendix: Normal appendix. Pelvis: Prior hysterectomy. IMPRESSION: 1. Diffuse wall thickening of the colon compatible with pancolitis. This could be of inf ectious or inflammatory etiology. 2. Hepatic steatosis. This exam was performed according to our departmental dose-optimization program, which includes autom ated exposure control, adjustment of the mA and/or kV according to patient size and/or use of iterati ve reconstruction technique. Electronically signed by: Maurice Rosales 12/29/2018 4:53 AM CDT Due to temporary technical issues with the PACS/Fluency reporting system, reports are being signed by the in house radiologist as a courtesy to ensure prompt reporting. The interpreting radiologist is f ully responsible for the content of the report.
--- NOTE | 2018-12-31 15:48 | P.PN ---
Subjective Date of Service: 12/31/18 Chief Complaint: pancolitis Patient seen and examined chart reviewed and case discussed with RN and Dr. Koch. patient is improving. Nausea has improved as well as the pain. Able to tolerate clear liquids. Patient's primary oncologist requested transfer to [facility] however currently on diversion Review of Systems 10-point ROS is otherwise unremarkable Gastrointestinal: As per HPI Physical Examination - Vital Signs Temperature: 97.4 F Blood Pressure: 172/84 Pulse: 57 Respirations: 20 Pulse Ox (%): 100 - Physical Exam General: Alert, Oriented x3, Mild distress HEENT: Atraumatic, PERRLA, EOMI Neck: Supple, JVD not distended Respiratory: Clear to auscultation bilaterally, Normal air movement Cardiovascular: No edema, Normal pulses, Regular rate/rhythm, Normal S1 S2 Gastrointestinal: Normal bowel sounds, Soft and benign, No rebound, No guarding , Other (Ileostomy bag in place), Tenderness Musculoskeletal: No tenderness Integumentary: No rashes Neurological: Normal speech, Normal tone, Normal affect - Studies Laboratory Last Values WBC 10.8 K/uL (4.3-10.9) D 12/30/18 05:52 RBC 4.24 M/uL (3.86-4.86) 12/30/18 05:52 Hgb 11.8 g/dL (12.0-15.0) L 12/30/18 05:52 Hct 35.6 % (36.0-45.0) L 12/30/18 05:52 MCV 83.9 fL (80-100) 12/30/18 05:52 MCH 27.9 pg (27.0-35.0) 12/30/18 05:52 MCHC 33.2 g/dL (32.0-36.0) 12/30/18 05:52 RDW 24.4 % (12.1-15.2) H 12/30/18 05:52 Plt Count 330 K/uL (152-406) 12/30/18 05:52 MPV 7.6 fL (7.6-11.3) 12/30/18 05:52 Plt Distribution Width Cancelled 12/30/18 07:00 Absolute Nucleated RBC Cancelled 12/30/18 07:00 Neutrophils % 82.2 % (41.7-73.7) H 12/30/18 05:52 Lymphocytes % 10.6 % (15.3-44.8) L 12/30/18 05:52 Monocytes % 6.6 % (3.3-12.3) 12/30/18 05:52 Eosinophils % 0.1 % (0-4.4) 12/30/18 05:52 Basophils % 0.5 % (0-1.3) 12/30/18 05:52 Nucleated RBC % Cancelled 12/30/18 07:00 Absolute Neutrophils 8.9 K/uL (1.8-8.0) H 12/30/18 05:52 Absolute Lymphocytes 1.1 K/uL (0.7-4.9) 12/30/18 05:52 Absolute Monocytes 0.7 K/uL (0.1-1.3) 12/30/18 05:52 Absolute Eosinophils 0.0 K/uL (0-0.5) 12/30/18 05:52 Absolute Basophils 0.1 K/uL (0-0.5) 12/30/18 05:52 Diff Path Review Cancelled 12/30/18 07:00 Anisocytosis 2+ 12/29/18 03:00 Ovalocytes 2+ 12/29/18 03:00 Morphology Comment Noted (NOT SEEN) 12/29/18 03:00 Sodium 140 mmol/L (136-145) 12/31/18 06:06 Potassium 3.5 mmol/L (3.5-5.1) 12/31/18 06:06 Chloride 107 mmol/L (98-107) 12/31/18 06:06 Carbon Dioxide 23 mmol/L (21-32) 12/31/18 06:06 BUN 10 mg/dL (7-18) 12/31/18 06:06 Creatinine 0.72 mg/dL (0.55-1.3) 12/31/18 06:06 Estimated GFR 84 mL/min (=/>90) L 12/31/18 06:06 Glucose 114 mg/dL (74-106) H 12/31/18 06:06 Calcium 8.7 mg/dL (8.5-10.1) 12/31/18 06:06 Total Bilirubin 0.5 mg/dL (0.2-1.0) 12/29/18 03:00 AST 23 U/L (15-37) 12/29/18 03:00 ALT 22 U/L (12-78) 12/29/18 03:00 Alkaline Phosphatase 119 U/L (45-117) H 12/29/18 03:00 Serum Total Protein 8.1 g/dL (6.4-8.2) 12/29/18 03:00 Albumin 3.7 g/dL (3.4-5.0) 12/29/18 03:00 Globulin 4.4 g/dL (2.3-3.5) H 12/29/18 03:00 Albumin/Globulin Ratio 0.8 (1.1-1.8) L 12/29/18 03:00 Urine Color Yellow 12/30/18 10:15 Urine Appearance Clear 12/30/18 10:15 Urine pH 6.5 (5.0-7.0) 12/30/18 10:15 Ur Specific [place] 1.010 (1.005-1.030) 12/30/18 10:15 Urine Ketones 1+ (NEG) H 12/30/18 10:15 Urine Blood Trace (NEG) H 12/30/18 10:15 Urine Nitrite Negative (NEG) 12/30/18 10:15 Urine Bilirubin Negative (NEG) 12/30/18 10:15 Urine Urobilinogen 0.2 mg/dL (0.2-1.0) 12/30/18 10:15 Ur Leukocyte Esterase Negative (NEG) 12/30/18 10:15 Urine RBC <5 /HPF (NONE SEEN) 12/30/18 10:15 Urine WBC <5 /HPF (<5) 12/30/18 10:15 Ur Squamous Epith Cells <5 /HPF (NONE SEEN) 12/30/18 10:15 Urine Bacteria <20 /HPF (<20) 12/30/18 10:15 Urine Culture Reflexed Not needed 12/30/18 10:15 Urine Glucose Negative (NEG) 12/30/18 10:15 Urine Total Protein Negative (NEG) 12/30/18 10:15 Medications List Reviewed: Yes Assessment And Plan - Current Problems (Diagnosis) (1) Pancolitis Current Visit: Yes Status: Acute (2) Intractable nausea and vomiting Current Visit: Yes Status: Acute (3) Hypokalemia Current Visit: Yes Status: Acute (4) Colon cancer Current Visit: Yes Status: Acute Qualifiers: Colon location: unspecified part of colon Qualified Code(s): C18.9 - Malignant neoplasm of colon, unspecified - Plan The patient is nausea and pain are better. Will advance to full liquid replace electrolytes and monitor Continue IV fluids Continue IV antibiotics DVT prophylaxis with Lovenox Supportive care Spoke with Dr. Koch at [facility] who has accepted the patient however bed is not available due to diversion. Transfer once bed available
[2019-01-01] MEDS: METRONIDAZOLE 500mg IVPB 500 MG/100 ML BAG IV SCH ×2 (00:12→10:02)
[2019-01-01] MEDS: ONDANSETRON 4 MG/2 ML VIAL IV PRN ×2 (00:14→04:27)
[2019-01-01] MEDS: MORPHINE 2 MG/ML SYR IV PRN ×2 (00:14→04:25)
[2019-01-01] MEDS: NA CHLORIDE 0.9% 1,000 ML IV SCH (02:19)
[2019-01-01 06:38] LABS: BUN Blood Urea Nitrogen 11 mg/dL (7-18); Bicarbonate 26 mmol/L (21-32); Glucose Level 91 mg/dL (74-106); Magnesium 1.7 mg/dL (1.8-2.4); Potassium 3.5 mmol/L (3.5-5.1); Sodium Level 138 mmol/L (136-145)
[2019-01-01] MEDS ORDERED: MAGNESIUM SULFATE 1 gm IVPB 1 GM/100 ML BAG IV ONE (09:00)
[2019-01-01] MEDS: CIPROFLOXACIN 400mg IV 400 MG/200 ML BAG IV SCH (10:00)
[2019-01-01] MEDS ORDERED: NA CHLORIDE 0.9% IV SCH (10:00)
[2019-01-01] MEDS ORDERED: POTASSIUM CL IV SCH (10:00)
[2019-01-01] MEDS: ENOXAPARIN 40 MG/0.4 ML SQ SCH (10:01)
[2019-01-01] MEDS: METOPROLOL TAR 25 MG TAB PO SCH (10:01)
[2019-01-01] MEDS ORDERED: POTASSIUM 25 MEQ EFFERV TAB PO ONE (12:02)
--- NOTE | 2019-01-02 17:04 | P.DS ---
Admission Date: 12/29/18 Discharge Date: 01/01/19 Disposition: ROUTINE DISCHARGE Discharge Condition: GOOD Reason for Admission: pancolitis Brief History of Present Illness: Ms Kapadia is a 58 year old woman with history of colon cancer, followed up at [facility], S/P bowel resection with cholostomy, in plan for reversion. She start with diffuse abdominal pain last night around 9:00 PM. She also had nausea and vomiting. She denied fever, but has had cold, chills and sweating episodes. She has increased the amount of stools in her cholostomy bag. At arrival, she was afebrile, very nauseated. Lab work shows normal WBC count, hypokalemia, CT abd/pelvis remarkable for diffuse wall thickening of the colon consistent with pancolitis. Hospital Course: The patient was admitted to the hospital for pancolitis. She was started on empiric IV antibiotics with Cipro and Flagyl. Was provided symptomatic care with pain medications and anti emetics. Patient was slowly started on clear liquids once or symptoms improved. Case was discussed with her primary oncologist at [facility] oncology, Dr. Koch. Initially the plan was to transfer patient over to [facility] for continuity of care and patient preference. Dr. Koch was going to be the accepting physician and the patient was pending a bed availability. Overnight still, patient stated her symptoms improved and she was able to tolerate a GI soft diet. Case was again discussed with Dr. Koch and patient was then discharged home in a stable manner with follow up in 2 days as an outpatient in Dr. Koch' s clinic. Prior to discharge, patient was alert oriented x3, in no acute distress and symptom-free. She was tolerating a GI soft diet. Diagnoses and treatment plan explained to her, all questions were answered and patient verbalized understanding. She was then discharged home in a safe and stable manner. Vital Signs/Physical Exam: Temp Pulse Resp BP Pulse Ox 98.2 F 65 18 104/65 98 01/01/19 11:41 01/01/19 11:41 01/01/19 11:41 01/01/19 11:41 01/01/19 11:41 General: Alert, In no apparent distress, Oriented x3 HEENT: Atraumatic, PERRLA, EOMI Neck: Supple, JVD not distended Respiratory: Clear to auscultation bilaterally, Normal air movement Cardiovascular: Regular rate/rhythm, Normal S1 S2 Gastrointestinal: Normal bowel sounds, No tenderness Musculoskeletal: No tenderness Integumentary: No rashes Neurological: Normal speech, Normal tone, Normal affect Lymphatics: No axilla or inguinal lymphadenopathy Laboratory Data at Discharge: WBC 10.8 K/uL (4.3-10.9) D 12/30/18 05:52 Hgb 11.8 g/dL (12.0-15.0) L 12/30/18 05:52 Hct 35.6 % (36.0-45.0) L 12/30/18 05:52 Plt Count 330 K/uL (152-406) 12/30/18 05:52 Sodium 138 mmol/L (136-145) 01/01/19 05:46 Potassium 3.5 mmol/L (3.5-5.1) 01/01/19 05:46 BUN 11 mg/dL (7-18) 01/01/19 05:46 Creatinine 0.66 mg/dL (0.55-1.3) 01/01/19 05:46 Glucose 91 mg/dL (74-106) 01/01/19 05:46 Magnesium 1.7 mg/dL (1.8-2.4) L D 01/01/19 05:46 Total Bilirubin 0.5 mg/dL (0.2-1.0) 12/29/18 03:00 AST 23 U/L (15-37) 12/29/18 03:00 ALT 22 U/L (12-78) 12/29/18 03:00 Alkaline Phosphatase 119 U/L (45-117) H 12/29/18 03:00 Home Medications: Metoprolol Tartrate [Lopressor*] 25 mg PO BID 12/29/18 Patient Discharge Instructions: Please follow up with Dr. Sargent at the end of this week. Please call his clinic to schedule an appointment. Please return to the Emergency room for worsening symptoms. Diet: GI soft Activity: Ad ophelia Followup: Nathaniel Sargent MD [OUTSIDE PHYSICIAN] - (Please call Dr. Sargent clinic to schedule an appointment for /monday (01/03/19 or 01/04/19)) Time spent managing pt's care (in minutes): 55
== END 2019-01-01 13:35 | disposition home or self-care (01) | DRG 392 ==
LOC: ER 02:32 → ERHOLD 05:42 → 4TH 06:38
PROVIDERS: ADMIT Internal Medicine; ATTEND Family Medicine
DX: K52.9 Noninfective gastroenteritis and colitis, unspecified (principal); C18.9 Malignant neoplasm of colon, unspecified; Z93.3 Colostomy status; E87.6 Hypokalemia; Z90.49 Acquired absence of other specified parts of digestive tract
CPT/HCPCS: 36415; 74177; 80048; 80053; 81001; 82962; 83735; 84132; 85025; 87493; 99285; J0744; J1630; J1650; J2270; J2405; J2550; J2765; J3010; J3475; J7030; Q9967